=== PATIENT | female | born 1940 | race Caucasian/White ===

== ENCOUNTER 2016-10-17 15:46 | Inpatient (IN) | payer MEDICARE, OTHER ==
[~2016-10-17] VITALS: Ht 162.6 cm; Wt 80.5 kg
[2016-10-17] MEDS: IPRATRPIUM/ALBUTEROL 0.5/2.5MG 3 ML NEBU. NEB SCH ×2 (16:00→20:01)
[2016-10-17 16:40] VITALS: BP 117/79
[2016-10-17] MEDS ORDERED: IV 1/2 NORMAL SALINE 1,000 ML IV SCH (16:45)
[2016-10-17 16:48] VITALS: BP 157/71
[2016-10-17 16:52] LABS: ALBUMIN 3.2 g/dL (3.4-5.0); ALBUMIN/GLOBULIN RATIO 0.8 (1.0-1.7); CALCIUM 8.8 mg/dL (8.5-10.1); CREATININE 1.4 mg/dL (0.6-1.0); GFR 36.8; POTASSIUM 4.1 mmol/L (3.5-5.1); TOTAL BILIRUBIN 0.2 mg/dL (0.2-1.0); TOTAL PROTEIN 7.3 g/dL (6.4-8.2)
[2016-10-17 16:56] LABS: BASO # 0.1 x10^3/uL (0.0-0.2); BASO % 1 % (0-3); EOS # 0.1 x10^3/uL (0.0-0.7); EOS % 1 % (0-3); HEMATOCRIT 34.2 % (36.0-47.0); HEMOGLOBIN 11.2 g/dL (12.0-15.5); LYMPH # 2.6 x10^3/uL (1.0-4.8); LYMPH % 26 % (24-48); MEAN CORPUSCULAR HEMOGLOBIN 29 pg (25-35); MEAN CORPUSCULAR HGB CONC 33 g/dL (31-37); MEAN CORPUSCULAR VOLUME 87 fL (79-100); MONO # 0.8 x10^3/uL (0.0-1.1); MONO % 8 % (0-9); NEUT # 6.7 x10^3uL (1.8-7.7); NEUT % 65 % (31-73); PLATELET COUNT 219 x10^3/uL (140-400); RED BLOOD COUNT 3.92 x10^6/uL (3.50-5.40); RED CELL DISTRIBUTION WIDTH 14.9 % (11.5-14.5); WHITE BLOOD COUNT 10.3 x10^3/uL (4.0-11.0)
[2016-10-17] MEDS ORDERED: HYDR-2762 PO (16:57)
[2016-10-17] MEDS ORDERED: ALBU8.5H8 INH (16:57)
[2016-10-17] MEDS ORDERED: IPRA3AMP NEB (16:57)
[2016-10-17] MEDS ORDERED: HYDR25TA9 PO (16:57)
[2016-10-17] MEDS ORDERED: INSU100V13 SQ (16:57)
[2016-10-17] MEDS ORDERED: DILT180C64 PO (16:57)
[2016-10-17] MEDS ORDERED: FURO40TA4 PO (16:57)
[2016-10-17] MEDS ORDERED: ALPR1TAB6 PO (16:57)
[2016-10-17] MEDS ORDERED: LISI10TA2 PO (16:57)
[2016-10-17] MEDS ORDERED: IPRATRPIUM/ALBUTEROL 0.5/2.5MG 3 ML NEBU. NEB SCH (17:00)
[2016-10-17] MEDS ORDERED: ALBUTEROL SULFATE 2.5 MG/3 ML NEBU. NEB PRN (17:15)
[2016-10-17] MEDS: HYDROcodone/APAP 7.5/325MG 1 TAB TABLET PO PRN (17:33)
[2016-10-17] MEDS ORDERED: fentaNYL PF 100 MCG/2 ML VIAL IV PRN (17:45)
[2016-10-17] MEDS ORDERED: AZITHROMYCIN 500 MG in IV NORMAL SALINE 250ML 250 ML IV SCH (18:00)
[2016-10-17] MEDS ORDERED: ENOXAPARIN 40 MG/0.4 ML DISP.SYRIN. SQ SCH (18:15)
[2016-10-17] MEDS ORDERED: ENOXAPARIN 30 MG/0.3 ML DISP.SYRIN. SQ SCH (18:15)
[2016-10-17 19:18] VITALS: BP 110/69
[2016-10-17 20:35] LABS: BILIRUBIN,URINE NEG (NEG); CLARITY,URINE CLOUDY; COLOR,URINE YELLOW; GLUCOSE,URINE NEG (NEG); NITRITE,URINE NEG (NEG); UROBILINOGEN,URINE 0.2 mg/dL (0.2 mg/dL)
[2016-10-17 20:36] LABS: BACTERIA,URINE FEW /HPF (0-FEW); SQUAMOUS EPITHELIAL CELL,UR MANY /LPF; WBC,URINE 20-40 /HPF (0-4)
[2016-10-17 20:44] LABS: YEAST,URINE PRESENT /HPF
[2016-10-17] MEDS: ENOXAPARIN 40 MG/0.4 ML DISP.SYRIN. SQ SCH (21:44)
[2016-10-17] MEDS: INSULIN DETEMIR 300 UNITS/3 ML INSULN.PEN. SQ SCH (21:45)
[2016-10-17 22:58] VITALS: BP 141/62
[2016-10-18] MEDS: IPRATRPIUM/ALBUTEROL 0.5/2.5MG 3 ML NEBU. NEB SCH ×4 (05:12→21:11)
[2016-10-18 05:50] VITALS: BP 113/60
[2016-10-18 06:35] LABS: BASO % 1 % (0-3); EOS # 0.1 x10^3/uL (0.0-0.7); EOS % 2 % (0-3); HEMATOCRIT 32.2 % (36.0-47.0); HEMOGLOBIN 10.4 g/dL (12.0-15.5); LYMPH # 2.6 x10^3/uL (1.0-4.8); LYMPH % 33 % (24-48); MEAN CORPUSCULAR HEMOGLOBIN 29 pg (25-35); MEAN CORPUSCULAR HGB CONC 32 g/dL (31-37); MEAN CORPUSCULAR VOLUME 88 fL (79-100); MONO # 0.7 x10^3/uL (0.0-1.1); MONO % 10 % (0-9); NEUT # 4.3 x10^3uL (1.8-7.7); NEUT % 55 % (31-73); PLATELET COUNT 180 x10^3/uL (140-400); RED BLOOD COUNT 3.64 x10^6/uL (3.50-5.40); RED CELL DISTRIBUTION WIDTH 14.9 % (11.5-14.5); WHITE BLOOD COUNT 7.8 x10^3/uL (4.0-11.0)
[2016-10-18 06:46] LABS: CALCIUM 8.9 mg/dL (8.5-10.1); CREATININE 1.3 mg/dL (0.6-1.0)
[2016-10-18] MEDS ORDERED: PANT40TA5 PO (08:05)
[2016-10-18] MEDS: hydroCHLOROthiazide 25 MG TABLET PO SCH (08:06)
[2016-10-18] MEDS: ALPRAZolam 0.5 MG TABLET PO SCH (08:06)
[2016-10-18] MEDS: LISINOPRIL 20 MG TABLET PO SCH (08:07)
[2016-10-18] MEDS: FUROSEMIDE 40 MG TABLET PO SCH (08:07)
[2016-10-18] MEDS: HYDROcodone/APAP 7.5/325MG 1 TAB TABLET PO PRN ×2 (08:09→20:54)
[2016-10-18] MEDS: PANTOPRAZOLE 40 MG TABLET. PO SCH (08:09)
[2016-10-18] MEDS: INSULIN DETEMIR 300 UNITS/3 ML INSULN.PEN. SQ SCH ×2 (08:11→20:55)
--- NOTE | 2016-10-18 08:37 | RAD ---
Indication: Pneumonia and shortness of air. Time of exam 0927 hours. Correlation is made with prior chest from 03/08/2013. The heart size is stable. There is a large hiatal hernia present. No infiltrates are detected. No effusion is seen. There is no pneumothorax. Impression: Hiatal hernia. No acute cardiopulmonary process is detected.
[2016-10-18 10:14] VITALS: BP_SYST 81
[2016-10-18 15:20] VITALS: BP 111/67
[2016-10-18] MEDS ORDERED: AZITHROMYCIN 250 MG TABLET. PO SCH (17:00)
[2016-10-18 18:01] VITALS: BP 116/72
[2016-10-18] MEDS: methylPREDNISolone SOD SUCC PF 40 MG/ML VIAL. IV SCH (20:52)
[2016-10-18] MEDS: ENOXAPARIN 40 MG/0.4 ML DISP.SYRIN. SQ SCH (20:54)
[2016-10-18 23:20] VITALS: BP 123/67
[2016-10-19 05:07] VITALS: BP 115/71
--- NOTE | 2016-10-19 05:16 | PN ---
DATE: 10/18/2016 SUBJECTIVE: A 76-year-old female in with acute exacerbation of COPD. X-rays at the office did demonstrate an early pneumonic process. The patient says she is feeling much better. She is breathing a lot easier. OBJECTIVE: VITAL SIGNS: Blood pressure 110/70, respiratory rate 20, pulse 80, afebrile, oxygen saturation has come up gradually. GENERAL: In any case, the patient is alert and oriented. LUNGS: Diminished throughout. Occasional wheeze in the upper lobes. CARDIOVASCULAR: Regular sinus rhythm. ABDOMEN: Soft, nontender. EXTREMITIES: No clubbing, cyanosis or edema. LABORATORY DATA: Hemoglobin 10.4 and 32. The patient's BUN and creatinine of 23 and 1.3, blood sugar approximately 170. IMPRESSION: Therefore, pneumonia of unspecified etiology; acute exacerbation of chronic obstructive pulmonary disease; type 2 diabetes; chronic kidney disease 3; and mild protein malnutrition. PLAN: The patient will be continued tapering down on her Solu-Medrol and make further evaluation on her as indicated. THONY MEDELLIN MD DR: MAGALY/elmo JOB#: [id number] / [id number]
[2016-10-19] MEDS: IPRATRPIUM/ALBUTEROL 0.5/2.5MG 3 ML NEBU. NEB SCH ×2 (05:50→09:38)
[2016-10-19] MEDS: PANTOPRAZOLE 40 MG TABLET. PO SCH (07:34)
[2016-10-19] MEDS: ALPRAZolam 0.5 MG TABLET PO SCH (08:40)
[2016-10-19] MEDS: HYDROcodone/APAP 7.5/325MG 1 TAB TABLET PO PRN (08:41)
[2016-10-19] MEDS: hydroCHLOROthiazide 25 MG TABLET PO SCH (08:41)
[2016-10-19] MEDS: LISINOPRIL 20 MG TABLET PO SCH (08:42)
[2016-10-19] MEDS: FUROSEMIDE 40 MG TABLET PO SCH (08:42)
[2016-10-19] MEDS: methylPREDNISolone SOD SUCC PF 40 MG/ML VIAL. IV SCH (08:43)
[2016-10-19] MEDS: INSULIN DETEMIR 300 UNITS/3 ML INSULN.PEN. SQ SCH (08:52)
[2016-10-19 10:32] VITALS: BP 144/70
[2016-10-19] MEDS ORDERED: DEXTROSE 50% 25 GM / 50ML DISP.SYRIN. IV PRN (12:00)
[2016-10-19] MEDS ORDERED: INSULIN ASPART 300 UNITS/3 ML INSULN.PEN SQ ONE (12:15)
[2016-10-19] MEDS ORDERED: PRED-220 PO (13:33)
[2016-10-19] MEDS ORDERED: IPRA3AMP NEB (13:33)
[2016-10-19] MEDS ORDERED: INSULIN ASPART 300 UNITS/3 ML INSULN.PEN SQ SCH (16:30)
--- NOTE | 2016-10-19 21:42 | DS ---
DATE OF DISCHARGE: 10/19/2016 HOSPITAL COURSE: This patient came in with acute exacerbation of COPD, extremely short of breath, tightness and wheezing throughout. The patient had an x-ray in the office which showed pneumonic process. The patient made good progress during rest of her hospitalization. Hemoglobin did drop down to 10.4 and 32. The patient's blood sugars ____ with the IV steroids that were used for the COPD. Otherwise, the patient made good progress. She did have a UA with culture sensitivity pending, which was not back by the time she was discharged. In any case, the patient made excellent progress during the rest of her hospitalization and she was discharged home. DISCHARGE DIAGNOSES. Includes that of acute exacerbation of chronic obstructive pulmonary disease, pneumonia of unspecified etiology and urinary tract infection, unidentified at this time. DISCHARGE INSTRUCTIONS: She will be discharged home and follow up as an outpatient. See MRAD. Decreased activity. Continue to use her breathing machine and she does see a dental assistant teacher, Dr. Asher for her pulmonary needs. THONY MEDELLIN MD DR: MAGALY/elmo JOB#: [id number] / [id number]
== END 2016-10-19 14:30 | disposition home or self-care (01) | DRG 190 ==
LOC: 1 SOUTH 15:46
PROVIDERS: ADMIT Family Medicine; ATTEND Family Medicine
DX: J44.0 Chronic obstructive pulmonary disease with (acute) lower respiratory infection (principal); J18.9 Pneumonia, unspecified organism; E44.1 Mild protein-calorie malnutrition; N39.0 Urinary tract infection, site not specified; J44.1 Chronic obstructive pulmonary disease with (acute) exacerbation; N18.9 Chronic kidney disease, unspecified; E11.22 Type 2 diabetes mellitus with diabetic chronic kidney disease; Z68.30 Body mass index [BMI] 30.0-30.9, adult; Z88.5 Allergy status to narcotic agent
CPT/HCPCS: 36415; 71020; 80048; 80053; 81001; 82947; 83605; 85027; 87040; 87086; 94640; J0456; J0696; J1650; J1815; J2920; J7030; J7050; J7620

== ENCOUNTER 2016-10-28 15:17 | Inpatient (IN) | payer OTHER ==
[~2016-10-28] VITALS: Ht 162.6 cm; Wt 78.6 kg
[~2016-10-28 15:17] MED LIST: ALBU8.5H8 INH; ALPR1TAB6 PO; DILT180C64 PO; FURO40TA4 PO; HYDR-2762 PO; HYDR25TA9 PO; INSU100V13 SQ; IPRA3AMP NEB; LISI10TA2 PO; PANT40TA5 PO; PRED-220 PO
--- NOTE | 2016-10-28 15:42 | EKG ---
[address] [address] Test Date: 2016-10-28 Test Time: 15:40:09 Pat Name: HENRIETTA ROMERO Department: Room: Gender: F Pulmonary Function Technologist: : 1940 Requested By: YESSENIA LEA Order Number: [id number] Reading MD: Nathaniel Babb Measurements Intervals [place] Rate: 112 P: 65 WA: 128 QRS: 45 QRSD: 86 T: 66 QT: 318 QTc: 436 Interpretive Statements SINUS TACHYCARDIA PVC PAC Electronically Signed On 11-03-2016 13:32:08 CDT by Nathaniel Babb
[2016-10-28] MEDS ORDERED: IPRATRPIUM/ALBUTEROL 0.5/2.5MG 3 ML NEBU. NEB ONE (15:45)
[2016-10-28 16:04] LABS: BASO % 0 % (0-3); EOS # 0.1 x10^3/uL (0.0-0.7); EOS % 0 % (0-3); HEMATOCRIT 38.7 % (36.0-47.0); HEMOGLOBIN 12.7 g/dL (12.0-15.5); LYMPH # 1.1 x10^3/uL (1.0-4.8); LYMPH % 5 % (24-48); MEAN CORPUSCULAR HEMOGLOBIN 29 pg (25-35); MEAN CORPUSCULAR HGB CONC 33 g/dL (31-37); MEAN CORPUSCULAR VOLUME 87 fL (79-100); MONO # 1.2 x10^3/uL (0.0-1.1); MONO % 5 % (0-9); NEUT # 20.8 x10^3uL (1.8-7.7); NEUT % 90 % (31-73); PLATELET COUNT 236 x10^3/uL (140-400); RED BLOOD COUNT 4.47 x10^6/uL (3.50-5.40); RED CELL DISTRIBUTION WIDTH 15.4 % (11.5-14.5); WHITE BLOOD COUNT 23.2 x10^3/uL (4.0-11.0)
[2016-10-28 16:21] LABS: BGAS PH 7.5 (7.35-7.45)
--- NOTE | 2016-10-28 16:22 | RAD ---
Examination: Single frontal view chest History shortness of breath Comparison: 10/18/2016 Findings: The cardiomediastinal silhouette grossly appears unremarkable. Small hiatal hernia is identified. Mild right lung base airspace opacities clinically atelectasis or infiltrate. Impression: 1. Mild right lung base airspace opacities likely atelectasis or infiltrate. 2. Small hiatal hernia.
[2016-10-28 16:28] LABS: ALBUMIN 3.3 g/dL (3.4-5.0); ALBUMIN/GLOBULIN RATIO 0.7 (1.0-1.7); CALCIUM 9.5 mg/dL (8.5-10.1); CREATININE 1.8 mg/dL (0.6-1.0); GFR 27.5; POTASSIUM 3.7 mmol/L (3.5-5.1); TOTAL BILIRUBIN 0.7 mg/dL (0.2-1.0); TOTAL PROTEIN 8.3 g/dL (6.4-8.2)
[2016-10-28] MEDS ORDERED: methylPREDNISolone SOD SUCC PF 125 MG/2 ML VIAL. IV ONE ×2 (16:30→17:00)
--- NOTE | 2016-10-28 16:36 | ED.ADGEN ---
Past History Past Medical History: CHF, COPD, Diabetes, Other Past Surgical History: Appendectomy, Cholecystectomy, Hysterectomy, Other Alcohol Use: None Drug Use: None Adult General Chief Complaint Chief Complaint Shortness of air HPI HPI Patient is a 76-year-old female with history of feet and S heart failure recently admitted this facility for COPD exacerbation and discharged home 9 days ago currently on steroids who presents with increased shortness of breath over the past 48 hours. Patient reports she shortness breath and fatigue with exertion long with chills sweats tactile fever. She does not have chest pain, leg pain or swelling. No abdominal pain, constipation or diarrhea. Patient requires 2 L of oxygen at night for sleep apnea. Review of Systems Review of Systems ROS as per HPI Current Medications Current Medications Current Medications Medications (Trade) Dose Ordered Sig/Rigo Start Time Stop Time Status Last Admin Dose Admin Albuterol/ Ipratropium (Duoneb) 3 ml 1X ONCE 10/28/16 15:45 10/28/16 15:46 DC Allergies Allergies Allergies Coded Allergies Type Severity Reaction Last Updated Verified codeine Allergy Intermediate 10/28/16 Yes Physical Exam Physical Exam Constitutional: Well developed, well nourished, no acute distress, non-toxic appearance. HENT: Normocephalic, atraumatic, bilateral external ears normal, oropharynx moist, no oral exudates, nose normal. Eyes: PERRLA, EOMI, conjunctiva normal, no discharge. Neck: Normal range of motion, no tenderness, supple, no stridor. Cardiovascular:Heart rate regular rhythm, no murmur. Lungs & Thorax: Bilateral breath sounds clear to auscultation. Abdomen: Bowel sounds normal, soft, no tenderness, no masses, no pulsatile masses. Skin: Warm, dry, no erythema, no rash. Back: No tenderness, no CVA tenderness. Extremities: No tenderness. Neurologic: Alert and oriented X 3, normal motor function, normal sensory function, no focal deficits noted. Psychologic: Affect normal, judgement normal, mood normal. Current Patient Data Vital Signs Vital Signs Date Time Temp Pulse Resp B/P (MAP) Pulse Ox O2 Delivery O2 Flow Rate FiO2 10/28/16 16:10 109 37 99/65 (76) 93 Nasal Cannula 2.0 10/28/16 15:31 97.0 Lab Results Laboratory Tests Test 10/28/16 15:47 10/28/16 15:55 White Blood Count 23.2 x10^3/uL (4.0-11.0) H Red Blood Count 4.47 x10^6/uL (3.50-5.40) Hemoglobin 12.7 g/dL (12.0-15.5) Hematocrit 38.7 % (36.0-47.0) Mean Corpuscular Volume 87 fL (79-100) Mean Corpuscular Hemoglobin 29 pg (25-35) Mean Corpuscular Hemoglobin Concent 33 g/dL (31-37) Red Cell Distribution Width 15.4 % (11.5-14.5) H Platelet Count 236 x10^3/uL (140-400) Neutrophils (%) (Auto) 90 % (31-73) H Lymphocytes (%) (Auto) 5 % (24-48) L Monocytes (%) (Auto) 5 % (0-9) Eosinophils (%) (Auto) 0 % (0-3) Basophils (%) (Auto) 0 % (0-3) Neutrophils # (Auto) 20.8 x10^3uL (1.8-7.7) H Lymphocytes # (Auto) 1.1 x10^3/uL (1.0-4.8) Monocytes # (Auto) 1.2 x10^3/uL (0.0-1.1) H Eosinophils # (Auto) 0.1 x10^3/uL (0.0-0.7) Basophils # (Auto) 0.0 x10^3/uL (0.0-0.2) Platelet Estimate Pending Sodium Level 138 mmol/L (136-145) Potassium Level 3.7 mmol/L (3.5-5.1) Chloride Level 96 mmol/L (98-107) L Carbon Dioxide Level 30 mmol/L (21-32) Anion Gap 12 (6-14) Blood Urea Nitrogen 36 mg/dL (7-20) H Creatinine 1.8 mg/dL (0.6-1.0) H Estimated GFR (Cockcroft-Gault) 27.5 BUN/Creatinine Ratio 20 (6-20) Glucose Level 149 mg/dL (70-99) H Calcium Level 9.5 mg/dL (8.5-10.1) Total Bilirubin 0.7 mg/dL (0.2-1.0) Aspartate Amino Transferase (AST) 18 U/L (15-37) Alanine Aminotransferase (ALT) 25 U/L (14-59) Alkaline Phosphatase 143 U/L (46-116) H Creatine Kinase 53 U/L (26-192) Creatine Kinase MB (Mass) 0.5 ng/mL (0.0-3.6) Creatine Kinase MB Relative Index 0.9 % (0-4) Troponin I Quantitative < 0.017 ng/mL (0-0.055) YG-Hmn-V-Type Natriuretic Peptide 392 pg/mL (0-124) H Total Protein 8.3 g/dL (6.4-8.2) H Albumin 3.3 g/dL (3.4-5.0) L Albumin/Globulin Ratio 0.7 (1.0-1.7) L Blood pH 7.50 (7.35-7.45) H Blood Gas PCO2 32 mmHg (35-45) L Blood Gas PO2 56 mmHg (71-100) L Blood Gas HCO3 25 mmol/L (22-26) Arterial Bld O2 Saturation (Calc) 92 % (92-99) FiO2 28 % EKG EKG [EKG: No sinus rhythm, no acute ST-T wave changes.] Radiology/Procedures Radiology/Procedures [Chest x-ray: Pulmonary infiltrates] Course & Med Decision Making Course & Med Decision Making Pertinent Labs and Imaging studies reviewed. (See chart for details) [Short of breath with elevated white blood cell count pulmonary infiltrate. Recent hospital admission. Antibiotics started hospital-acquired pneumonia. IV fluids and antibiotics given. Dr. Aquino to admit] Final Impression Final Impression [1.Pneumonia 2. COPD exacerbation Problems: Dragon Disclaimer Dragon Disclaimer This electronic medical record was generated, in whole or in part, using a voice recognition dictation system. YESSENIA LEA DO October 28, 2016 16:36
[2016-10-28] MEDS ORDERED: IV NORMAL SALINE 500ML 500 ML IV ONE (16:45)
[2016-10-28] MEDS ORDERED: ONDANSETRON PF 4 MG/2 ML VIAL. IV PRN (16:45)
[2016-10-28] MEDS: IPRATRPIUM/ALBUTEROL 0.5/2.5MG 3 ML NEBU. NEB SCH ×2 (17:52→20:44)
[2016-10-28 18:25] VITALS: BP 97/51
--- NOTE | 2016-10-28 18:38 | ACF ---
Admission Criteria Forms COPD Clinical Indications for Admission to Inpatient Care (Place 'X' for any and all applicable criteria): Admission is indicated for ANY ONE of the following (1)(2)(3): [X]I. Acute exacerbation by high-risk comorbidity (e.g., pneumonia, dysrhythmia, heart failure, pleural effusion, pneumothorax) or severe underlying COPD (e.g., steroid dependent) [ ]II. Inpatient admission required rather than observation care (see Chronic Obstructive Pulmonary Disease: Observation Care) because of ANY ONE of the following: [ ]a) New or pre-existing signs or symptoms of COPD (eg, dyspnea or Tachypnea at rest or with minimal activity) that persist despite outpatient and observation care treatment [ ]b) New-onset hypoxemia (room air SaO2 less than 90%, PO2 less than 60 mm Hg (8.0 kPa)) that persists despite outpatient and observation care treatment [ ]c) Worsening of pre-existing hypoxemia (eg, new or increased requirement for supplemental oxygen to maintain oxygenation at baseline level) that persists despite outpatient and observation care treatment, with oxygen treatment needs performable only in acute inpatient setting [ ]d) Hypercarbia (PCO2 greater than 40 mm Hg (5.3 kPa))-induced respiratory acidosis (pH less than 7.35) that persists despite outpatient and observation care treatment [ ]e) Supplemental oxygen or respiratory treatments for over 24 hours that are performable only in acute inpatient setting [ ]f) Chest tube placement with active evacuation (e.g., suction, drainage) (5) [ ]g) Other condition, treatment or monitoring requiring inpatient admission [ ]III. Planned invasive surgical or diagnostic procedures requiring acute- care hospitalization [ ]IV. Acute respiratory failure (e.g., uncompensated hypercarbia, severe hypoxemia) [ ]V. Severe comorbid condition (e.g., severe steroid myopathy, acute vertebral fracture) that has acutely worsened pulmonary function [ ]. Confusion state, lethargy, obtundation, stupor or coma Extended stay beyond goal length of stay may be needed for (31)(32): [ ]a ) Respiratory Failure. [ ]b) Severe or persisting hypoxemia or hypercarbia [ ]c) Severe or persistent dyspnea [ ]d) Comorbidities (e.g. chronic heart failure, atrial fibrillation with rapid response, pneumonia) [ ]e) Malnutrition The original [facility] content created by [facility] has been revised. The portions of the content which have been revised are identified through the use of italic text or in bold, and [facility] has neither reviewed nor approved the modified material. All other unmodified content is copyright [facility]. Please see references footnoted in the original [facility] edition 2016 Admission Criteria Met?: Yes GAYE KAPOOR October 28, 2016 18:38
[2016-10-28] MEDS ORDERED: ALBUTEROL SULFATE 8GM INHALER. INH PRN (18:45)
[2016-10-28 19:33] VITALS: BP 97/60
[2016-10-28] MEDS ORDERED: IV NORMAL SALINE 100ML 100 ML ONE (19:36)
[2016-10-28] MEDS: HYDROcodone/APAP 7.5/325MG 1 TAB TABLET PO PRN (19:42)
[2016-10-28 19:57] LABS: % SEGS 88 % (35-66)
[2016-10-28 19:58] LABS: % LYMPHS 7 % (24-48); % MONOS 5 % (0-10)
[2016-10-28 19:59] LABS: OVALOCYTES OCC; PLT ESTIMATE ADEQUATE (ADEQUATE); POLYCHROMASIA SLIGHT
[2016-10-28] MEDS ORDERED: DEXTROSE 50% 25 GM / 50ML DISP.SYRIN. IV PRN (20:30)
[2016-10-28] MEDS ORDERED: IPRATRPIUM/ALBUTEROL 0.5/2.5MG 3 ML NEBU. NEB SCH ×2 (21:00)
[2016-10-28] MEDS: methylPREDNISolone SOD SUCC PF 40 MG/ML VIAL. IV SCH (21:04)
[2016-10-28] MEDS: INSULIN DETEMIR 300 UNITS/3 ML INSULN.PEN. SQ SCH (21:05)
[2016-10-28] MEDS: INSULIN ASPART 300 UNITS/3 ML INSULN.PEN SQ SCH (21:05)
[2016-10-28 22:51] VITALS: BP 95/61
[2016-10-29] MEDS: IPRATRPIUM/ALBUTEROL 0.5/2.5MG 3 ML NEBU. NEB SCH ×4 (05:20→20:24)
[2016-10-29] MEDS: methylPREDNISolone SOD SUCC PF 40 MG/ML VIAL. IV SCH ×3 (05:27→20:56)
[2016-10-29 05:34] VITALS: BP 126/75
[2016-10-29 07:14] LABS: BASO % 0 % (0-3); EOS % 0 % (0-3); HEMATOCRIT 33.3 % (36.0-47.0); HEMOGLOBIN 10.6 g/dL (12.0-15.5); LYMPH # 0.8 x10^3/uL (1.0-4.8); LYMPH % 6 % (24-48); MEAN CORPUSCULAR HEMOGLOBIN 28 pg (25-35); MEAN CORPUSCULAR HGB CONC 32 g/dL (31-37); MEAN CORPUSCULAR VOLUME 87 fL (79-100); MONO # 0.2 x10^3/uL (0.0-1.1); MONO % 1 % (0-9); NEUT # 13.4 x10^3uL (1.8-7.7); NEUT % 93 % (31-73); PLATELET COUNT 192 x10^3/uL (140-400); RED BLOOD COUNT 3.82 x10^6/uL (3.50-5.40); RED CELL DISTRIBUTION WIDTH 15.2 % (11.5-14.5); WHITE BLOOD COUNT 14.4 x10^3/uL (4.0-11.0)
[2016-10-29 07:24] LABS: ALBUMIN 2.7 g/dL (3.4-5.0); ALBUMIN/GLOBULIN RATIO 0.6 (1.0-1.7); CALCIUM 9.8 mg/dL (8.5-10.1); CREATININE 1.9 mg/dL (0.6-1.0); GFR 25.8; POTASSIUM 4.2 mmol/L (3.5-5.1); TOTAL BILIRUBIN 0.3 mg/dL (0.2-1.0); TOTAL PROTEIN 7.2 g/dL (6.4-8.2)
[2016-10-29] MEDS: LISINOPRIL 10 MG TABLET PO SCH (08:19)
[2016-10-29] MEDS: HYDROcodone/APAP 7.5/325MG 1 TAB TABLET PO PRN (08:21)
[2016-10-29] MEDS: PANTOPRAZOLE 40 MG TABLET. PO SCH (08:21)
[2016-10-29] MEDS: FUROSEMIDE 40 MG TABLET PO SCH (08:21)
[2016-10-29] MEDS: INSULIN DETEMIR 300 UNITS/3 ML INSULN.PEN. SQ SCH ×2 (08:26→19:07)
[2016-10-29] MEDS: INSULIN ASPART 300 UNITS/3 ML INSULN.PEN SQ SCH ×4 (08:27→19:08)
[2016-10-29] MEDS ORDERED: predniSONE 10 MG TABLET PO SCH (09:00)
[2016-10-29 11:23] VITALS: BP 107/65
[2016-10-29] MEDS ORDERED: INSULIN ASPART 300 UNITS/3 ML INSULN.PEN SQ ONE (12:15)
[2016-10-29 16:18] VITALS: BP 101/56
[2016-10-29 19:19] VITALS: BP 124/70
--- NOTE | 2016-10-29 19:31 | HP ---
ADMIT DATE: 10/28/2016 HISTORY OF PRESENT ILLNESS: A 76-year-old female came in through the Emergency Room with increased shortness of breath. The patient has a long history of COPD. Apparently, she continues to smoke. She admits that she has not followed the doctor's advice and recommendations and orders to stop smoking. In any case, she had further exacerbation of chronic obstructive pulmonary disease with increased shortness of breath and the like. Again, she was notified that probably her smoking more than anything else has precipitated exacerbation of her COPD and told her of the dire consequences of this as well. She also was noted to have an elevated lactic acid consistent with sepsis. The patient was admitted for exacerbation of COPD and sepsis. PAST MEDICAL HISTORY: Type 2 diabetes. She has had CHF, followed by ____. She has had pulmonary emboli in 2007, hypertension, COPD, anxiety, GERD, sleep apnea, but does not wear her CPAP at night; high blood pressure, high cholesterol, coronary artery disease. ALLERGIES: CODEINE and AVANDIA which she stopped taking it. MEDICATIONS: Levemir subcutaneous twice daily, ProAir inhaler, Nexium 40 mg, furosemide 40 mg, metoprolol 25, DuoNeb treatments 4 times a day, Cartia 180 daily, hydrochlorothiazide, lisinopril, furosemide 40, hydrocodone, Xanax 1 mg. FAMILY HISTORY: Unremarkable except for diabetes and cancer in the father. Heart problems in the mother as well as emphysema from smoking. PAST SURGICAL HISTORY: Bowel obstruction in 2006, appendectomy, hysterectomy as noted. SOCIAL HISTORY: Unfortunately, the patient continues to smoke about a half-pack of cigarettes a day, has about a 31-[id number] history of smoking and again ____ told to stop smoking. She denies alcohol. She does drink soda pop per day, a couple. REVIEW OF SYSTEMS: The patient denies any headaches, vision change, blurred vision, double vision. Denies chest pain, but does have shortness of breath. She denies any melena, hematochezia, hematemesis. Denies nausea or vomiting, but does have marked dyspnea. PHYSICAL EXAMINATION: GENERAL: This is a pleasant white female in moderate amount of distress. VITAL SIGNS: Blood pressure is that of 107/65, respiratory rate 24, pulse 92, temperature basically hypothermic at 97, at one time her pulse was 110 basically and ____ was decreased to 99/65; 2 liters of nasal cannula. HEENT: Head is atraumatic, normocephalic. Eyes: PERRLA without jaundice. Mouth and throat were normal. NECK: Supple without JVD or thyromegaly. LUNGS: Diminished throughout with poor breath sounds and rhonchi noted throughout. CARDIOVASCULAR: Regular sinus rhythm. ABDOMEN: Soft, nontender. EXTREMITIES: No clubbing, cyanosis or edema. NEUROLOGIC: The patient was alert and oriented x 3. The patient was admitted for further evaluation and treatment thereof. IMPRESSION: Exacerbation of chronic obstructive pulmonary disease, sepsis and the patient on sepsis pathway, make further evaluation on her as indicated per those results. THONY MEDELLIN MD DR: MAGALY/elmo JOB#: [id number] / [id number]
[2016-10-29] MEDS ORDERED: IV NORMAL SALINE 100ML 100 ML ONE (19:35)
[2016-10-29] MEDS ORDERED: methylPREDNISolone SOD SUCC PF 125 MG/2 ML VIAL. IV SCH (22:00)
[2016-10-29 23:00] VITALS: BP 121/61
[2016-10-30 03:17] VITALS: BP 119/72
[2016-10-30] MEDS: methylPREDNISolone SOD SUCC PF 40 MG/ML VIAL. IV SCH ×2 (05:14→21:03)
[2016-10-30] MEDS ORDERED: IPRATRPIUM/ALBUTEROL 0.5/2.5MG 3 ML NEBU. ONE (05:34)
[2016-10-30 05:49] VITALS: BP 131/70
[2016-10-30] MEDS: IPRATRPIUM/ALBUTEROL 0.5/2.5MG 3 ML NEBU. NEB SCH ×3 (08:00→20:47)
[2016-10-30] MEDS: FUROSEMIDE 40 MG TABLET PO SCH (08:05)
[2016-10-30] MEDS: PANTOPRAZOLE 40 MG TABLET. PO SCH (08:05)
[2016-10-30] MEDS: LISINOPRIL 10 MG TABLET PO SCH (08:06)
[2016-10-30] MEDS: INSULIN DETEMIR 300 UNITS/3 ML INSULN.PEN. SQ SCH ×2 (08:08→21:10)
[2016-10-30] MEDS: INSULIN ASPART 300 UNITS/3 ML INSULN.PEN SQ SCH ×4 (08:08→21:10)
[2016-10-30 08:40] LABS: BASO % 0 % (0-3); EOS % 0 % (0-3); HEMATOCRIT 33.4 % (36.0-47.0); HEMOGLOBIN 10.7 g/dL (12.0-15.5); LYMPH # 0.8 x10^3/uL (1.0-4.8); LYMPH % 4 % (24-48); MEAN CORPUSCULAR HEMOGLOBIN 28 pg (25-35); MEAN CORPUSCULAR HGB CONC 32 g/dL (31-37); MEAN CORPUSCULAR VOLUME 87 fL (79-100); MONO # 0.6 x10^3/uL (0.0-1.1); MONO % 4 % (0-9); NEUT % 92 % (31-73); PLATELET COUNT 237 x10^3/uL (140-400); RED BLOOD COUNT 3.85 x10^6/uL (3.50-5.40); RED CELL DISTRIBUTION WIDTH 15.3 % (11.5-14.5); WHITE BLOOD COUNT 18.5 x10^3/uL (4.0-11.0)
[2016-10-30 08:51] LABS: ALBUMIN/GLOBULIN RATIO 0.7 (1.0-1.7); CALCIUM 9.8 mg/dL (8.5-10.1); GFR 24.4; POTASSIUM 4.1 mmol/L (3.5-5.1); TOTAL BILIRUBIN 0.3 mg/dL (0.2-1.0); TOTAL PROTEIN 7.4 g/dL (6.4-8.2)
[2016-10-30 11:45] VITALS: BP 126/63
--- NOTE | 2016-10-30 12:09 | RAD ---
Indication: Cough, pneumonia. Technique: Two-view chest radiograph was obtained. Comparison is from 2 days earlier. Findings: The lungs are clear. There is no pleural effusion. The heart is not enlarged. There is atheromatous disease in the thoracic aorta. There is a small hiatal hernia. There are degenerative changes in the spine. Leads overlie the patient. Impression: No acute thoracic findings.
[2016-10-30] MEDS: guaiFENesin 300 MG/15 ML LIQUID PO PRN (17:43)
[2016-10-30 19:35] VITALS: BP 121/64
[2016-10-30] MEDS: ALPRAZolam 0.5 MG TABLET PO PRN (21:03)
[2016-10-30] MEDS: HYDROcodone/APAP 7.5/325MG 1 TAB TABLET PO PRN (21:03)
[2016-10-31] MEDS: guaiFENesin 300 MG/15 ML LIQUID PO PRN ×2 (01:13→16:41)
--- NOTE | 2016-10-31 03:26 | PN ---
DATE: 10/28/2016 SUBJECTIVE: A 76-year-old female with acute exacerbation of COPD, hypoxic, and sepsis. The patient is doing a little better today. She feels a little stronger, but still receiving IV antibiotic therapy and IV steroids. White count has come down gradually, but then gone back up probably from the steroids. Blood sugars are still elevated, but will be coming down with steroids decreased. Creatinine is slightly increased. She is not getting good hydration, otherwise; blood cultures have been negative. The patient otherwise seems to be making excellent progress and will continue with such. Otherwise, the patient's blood pressure 126/63, respiratory rate 22, pulse 100, and the patient's oxygen saturation on 2 liters at 97%. OBJECTIVE GENERAL: The patient is alert and oriented. LUNGS: Shows expiratory wheezing. CARDIOVASCULAR: Regular sinus rhythm. ABDOMEN: Soft, nontender, and protuberant. EXTREMITIES: No clubbing, cyanosis, nor edema. IMPRESSION: Sepsis, acute exacerbation of chronic obstructive pulmonary disease, chronic kidney disease 3, and type 2 diabetes exacerbation by the use of steroids. PLAN: Continue with present drug regimen. THONY MEDELLIN MD DR: MAGALY/elmo JOB#: [id number] / [id number]
[2016-10-31] MEDS: IPRATRPIUM/ALBUTEROL 0.5/2.5MG 3 ML NEBU. NEB SCH ×4 (05:25→20:55)
[2016-10-31 05:42] VITALS: BP 129/71
[2016-10-31 05:57] LABS: BASO % 0 % (0-3); EOS % 0 % (0-3); HEMATOCRIT 33.1 % (36.0-47.0); HEMOGLOBIN 10.7 g/dL (12.0-15.5); LYMPH # 0.6 x10^3/uL (1.0-4.8); LYMPH % 4 % (24-48); MEAN CORPUSCULAR HEMOGLOBIN 28 pg (25-35); MEAN CORPUSCULAR HGB CONC 32 g/dL (31-37); MEAN CORPUSCULAR VOLUME 87 fL (79-100); MONO # 0.8 x10^3/uL (0.0-1.1); MONO % 5 % (0-9); NEUT # 15.1 x10^3uL (1.8-7.7); NEUT % 91 % (31-73); PLATELET COUNT 238 x10^3/uL (140-400); RED BLOOD COUNT 3.82 x10^6/uL (3.50-5.40); RED CELL DISTRIBUTION WIDTH 15.5 % (11.5-14.5); WHITE BLOOD COUNT 16.5 x10^3/uL (4.0-11.0)
[2016-10-31 06:03] LABS: CALCIUM 9.5 mg/dL (8.5-10.1); CREATININE 2.2 mg/dL (0.6-1.0); GFR 21.8; POTASSIUM 4.4 mmol/L (3.5-5.1)
[2016-10-31] MEDS: methylPREDNISolone SOD SUCC PF 40 MG/ML VIAL. IV SCH ×2 (07:57→20:24)
[2016-10-31] MEDS: LISINOPRIL 10 MG TABLET PO SCH (07:58)
[2016-10-31] MEDS: PANTOPRAZOLE 40 MG TABLET. PO SCH (07:58)
[2016-10-31] MEDS: INSULIN ASPART 300 UNITS/3 ML INSULN.PEN SQ SCH ×4 (07:59→20:37)
[2016-10-31] MEDS: FUROSEMIDE 40 MG TABLET PO SCH (08:00)
[2016-10-31] MEDS: INSULIN DETEMIR 300 UNITS/3 ML INSULN.PEN. SQ SCH ×2 (08:00→20:36)
[2016-10-31 08:02] LABS: % BANDS 1 % (0-9); % LYMPHS 8 % (24-48); % MONOS 4 % (0-10); % SEGS 87 % (35-66); PLATELET CLUMP PRESENT; PLT ESTIMATE ADEQUATE (ADEQUATE)
[2016-10-31] MEDS: HYDROcodone/APAP 7.5/325MG 1 TAB TABLET PO PRN ×2 (08:12→18:41)
[2016-10-31] MEDS: ALPRAZolam 0.5 MG TABLET PO PRN ×2 (08:12→18:41)
[2016-10-31 18:01] VITALS: BP 118/61
[2016-10-31 22:03] VITALS: BP 118/66
[2016-11-01 02:10] VITALS: BP 115/65
[2016-11-01] MEDS: guaiFENesin 300 MG/15 ML LIQUID PO PRN ×2 (03:43→11:47)
[2016-11-01] MEDS: IPRATRPIUM/ALBUTEROL 0.5/2.5MG 3 ML NEBU. NEB SCH ×2 (04:57→10:16)
[2016-11-01 06:03] VITALS: BP 123/75
[2016-11-01 06:07] LABS: BASO % 0 % (0-3); EOS % 0 % (0-3); HEMATOCRIT 33.3 % (36.0-47.0); HEMOGLOBIN 10.9 g/dL (12.0-15.5); LYMPH # 0.6 x10^3/uL (1.0-4.8); LYMPH % 6 % (24-48); MEAN CORPUSCULAR HEMOGLOBIN 28 pg (25-35); MEAN CORPUSCULAR HGB CONC 33 g/dL (31-37); MEAN CORPUSCULAR VOLUME 86 fL (79-100); MONO # 0.5 x10^3/uL (0.0-1.1); MONO % 5 % (0-9); NEUT # 9.9 x10^3uL (1.8-7.7); NEUT % 90 % (31-73); PLATELET COUNT 224 x10^3/uL (140-400); RED BLOOD COUNT 3.87 x10^6/uL (3.50-5.40); RED CELL DISTRIBUTION WIDTH 15.5 % (11.5-14.5); WHITE BLOOD COUNT 11.1 x10^3/uL (4.0-11.0)
[2016-11-01 06:23] LABS: CALCIUM 9.6 mg/dL (8.5-10.1); CREATININE 1.7 mg/dL (0.6-1.0); GFR 29.4; POTASSIUM 4.8 mmol/L (3.5-5.1)
[2016-11-01] MEDS: INSULIN ASPART 300 UNITS/3 ML INSULN.PEN SQ SCH ×2 (08:27→11:48)
[2016-11-01] MEDS: INSULIN DETEMIR 300 UNITS/3 ML INSULN.PEN. SQ SCH (08:28)
[2016-11-01] MEDS: PANTOPRAZOLE 40 MG TABLET. PO SCH (08:28)
[2016-11-01] MEDS: FUROSEMIDE 40 MG TABLET PO SCH (08:28)
[2016-11-01] MEDS: methylPREDNISolone SOD SUCC PF 40 MG/ML VIAL. IV SCH (08:29)
[2016-11-01] MEDS: LISINOPRIL 10 MG TABLET PO SCH (08:30)
[2016-11-01 11:00] VITALS: BP 95/55
--- NOTE | 2016-11-01 11:09 | PN ---
DATE: SUBJECTIVE: A 76-year-old female with acute exacerbation of COPD, acute respiratory failure. The patient of course had been smoking and we worked on this numerous times to help her stop smoking; however, she developed sepsis and acute exacerbation of COPD. She is doing somewhat better. Her lungs are diminished, but clear than they have been. She is still on 3 liters anywhere from 94% to 96%, blood pressure 120/60, respiratory rate 24, pulse 90, afebrile. The patient's white count is down to 16,000, hemoglobin steady at 10.7 and 33. Electrolytes are basically unremarkable but creatinine is up to 2.2 showing some slight dehydration there. We will go ahead and may give her some mild fluids. She is down on a low dose of prednisone as we are tapering her down on that. Her lungs are still diminished throughout. We are trying to get arrange for skilled facility. OBJECTIVE: LUNGS: Otherwise, the patient's lungs are diminished throughout, some rhonchi noted. CARDIOVASCULAR: Regular sinus rhythm. ABDOMEN: Soft, protuberant. EXTREMITIES: No clubbing, cyanosis or edema. NEUROLOGIC: Intact. IMPRESSION: Therefore, acute respiratory distress, sepsis, acute exacerbation of chronic obstructive pulmonary disease, chronic kidney disease, type 2 diabetes. PLAN: Continue to monitor and get ready for possible skilled placement and also smoking cessation. THONY MEDELLIN MD DR: MAGALY/elmo JOB#: [id number] / [id number]
[2016-11-01] MEDS: ALPRAZolam 0.5 MG TABLET PO PRN (11:47)
[2016-11-01] MEDS: HYDROcodone/APAP 7.5/325MG 1 TAB TABLET PO PRN (11:47)
[2016-11-01] MEDS ORDERED: PRED-220 PO (11:55)
[2016-11-01] MEDS ORDERED: NICO1PAT21 TP (12:13)
== END 2016-11-01 12:56 | disposition home health service (06) | DRG 871 ==
LOC: ER 15:17 → 1 SOUTH 16:40 → ICU 10-31 16:29
PROVIDERS: ADMIT Family Medicine; ATTEND Family Medicine
DX: A41.9 Sepsis, unspecified organism (principal); J96.01 Acute respiratory failure with hypoxia; E43 Unspecified severe protein-calorie malnutrition; J44.1 Chronic obstructive pulmonary disease with (acute) exacerbation; I13.0 Hypertensive heart and chronic kidney disease with heart failure and stage 1 through stage 4 chronic kidney disease, or unspecified chronic kidney disease; N17.9 Acute kidney failure, unspecified; N18.4 Chronic kidney disease, stage 4 (severe); F17.210 Nicotine dependence, cigarettes, uncomplicated; K21.9 Gastro-esophageal reflux disease without esophagitis; E11.22 Type 2 diabetes mellitus with diabetic chronic kidney disease; I25.10 Atherosclerotic heart disease of native coronary artery without angina pectoris; I50.9 Heart failure, unspecified; F41.9 Anxiety disorder, unspecified; Z82.5 Family history of asthma and other chronic lower respiratory diseases; Z83.3 Family history of diabetes mellitus; Z86.711 Personal history of pulmonary embolism; Z90.49 Acquired absence of other specified parts of digestive tract; Z90.710 Acquired absence of both cervix and uterus; Z88.5 Allergy status to narcotic agent
CPT/HCPCS: 36415; 71010; 71020; 80048; 80053; 82553; 82803; 82947; 83605; 83880; 84484; 85007; 85027; 87040; 87641; 93005; 94640; 96361; 96374; J0696; J1815; J1956; J2920; J2930; J7040; J7620; 97110; 97530; 99285-25

== ENCOUNTER 2016-12-02 10:40 | Emergency (ER) | payer OTHER ==
[~2016-12-02] VITALS: Ht 315 cm; Wt 78.5 kg
[~2016-12-02 10:40] MED LIST changes: +NICO1PAT21 TP
--- NOTE | 2016-12-02 10:49 | PHYS DOC ---
Past History Past Medical History: CHF, COPD, Diabetes, Other Past Surgical History: Appendectomy, Cholecystectomy, Hysterectomy, Other Alcohol Use: None Drug Use: None Adult General Chief Complaint Chief Complaint: HYPERTENSION HPI HPI Patient is a 76 year old female who presents with elevated blood pressure and headache. The patient states her blood pressure has been running high and her home health nurse was checking her blood pressure this morning. At that time and was found to be in the 190s over 90s. She received lisinopril 20 mg orally and blood pressure remained elevated so she was referred here for further evaluation. She states today she has had generalized throbbing frontal headache , not the worst headache of her life and not sudden in onset, but unusual for her. She denies vision changes, chest pain, shortness of breath, extremity numbness or weakness, lower extremity edema. She has history of high blood pressure, reports medication compliance. Seen by her PCP Dr. Aquino yesterday in the clinic, given prescriptions for URI/bronchitis, states her blood pressure was also elevated at that time & she was instructed to monitor closely. Review of Systems Review of Systems Constitutional: Denies fever or chills Eyes: Denies change in visual acuity HENT: Denies nasal congestion or sore throat Respiratory: Denies cough or shortness of breath Cardiovascular: Denies chest pain or edema GI: Denies abdominal pain, nausea, vomiting : Denies dysuria or hematuria Musculoskeletal: Denies back pain or joint pain Integument: Denies rash or skin lesions Neurologic: Reports headache, denies focal weakness or sensory changes Allergies Allergies Allergies Coded Allergies Type Severity Reaction Last Updated Verified codeine Allergy Intermediate 10/28/16 Yes I S O L A T I O N *CONTACT* Allergy Unknown 10/31/16 Yes Physical Exam Physical Exam Constitutional: Well developed, well nourished, no acute distress, non-toxic appearance. HENT: Normocephalic, atraumatic, bilateral external ears normal, oropharynx moist, nose normal. Eyes: PERRLA, EOMI, conjunctiva normal, no discharge. Neck: supple, no stridor. no meningismus. Cardiovascular: RRR, no murmurs, no edema. Lungs & Thorax: LCTAB, no wheezing, no respiratory distress. Abdomen: soft, nontender, nondistended. Skin: Warm, dry, no erythema, no rash. Back: No tenderness. Extremities: No tenderness, no edema. no calf tenderness or swelling. Neurologic: Alert and oriented X 3, CN2-12 grossly intact, symmetric strength/ sensation to UE & LE, no focal deficits noted. Psychologic: Affect normal, judgement normal, mood normal. EKG EKG interpreted by me: NSR rate 81, no acute ST/T wave changes, normal intervals, no ectopy.[] Radiology/Procedures Radiology/Procedures PROCEDURE: CT HEAD WO CONTRAST CT of the head without contrast, 12/02/2016: History: Hypertension, headache There is mild cerebral atrophy. The ventricles are within normal limits in size. There is no shift of the midline structures. There is no evidence of acute intracranial hemorrhage or mass effect. IMPRESSION: No acute intracranial abnormality is detected. PQRS Compliance Statement: One or more of the following individualized dose reduction techniques were utilized for this examination: 1. Automated exposure control 2. Adjustment of the mA and/or kV according to patient size 3. Use of iterative reconstruction technique DICTATED AND SIGNED BY: RICHAR DESIR MD DATE: 12/02/161128 [] Course & Med Decision Making Course & Med Decision Making Pertinent Labs and Imaging studies reviewed. (See chart for details) The patient presents with hypertension & headache. She declined need for medication for her headache. Normal neuro exam. BP 193/96 upon arrival, improved to 157/[address] shows no intracranial hemorrhage, no abnormality of labs. Recommend continue to take lisinopril as prescribed. Follow up with Dr. Aquino for ongoing blood pressure management. Return to the emergency department for severe headache, severe chest pain or shortness of breath, focal neuro deficit, any otherwise worsening condition. Discharged home in stable condition. [] Dragon Disclaimer Dragon Disclaimer This chart was dictated in whole or in part using Voice Recognition software in a busy, high-work load, and often noisy Emergency Department environment. It may contain unintended and wholly unrecognized errors or omissions. Departure Departure: Impression: Primary Impression: Hypertension Additional Impression: Headache Disposition: HOME, SELF-CARE Condition: IMPROVED Referrals: THONY AQUINO MD (PCP) Patient Instructions: Hypertension, [id number] Additional Instructions: You seen in the emergency department today for high blood pressure. Blood pressure improved without any treatment here so your home medications seems to be working. Tests done in the emergency department did not show any serious abnormality. Please continue to take lisinopril as prescribed. Follow-up with Dr. Aquino for ongoing blood pressure management. Return to the emergency department for severe headache, severe shortness of breath or chest pain, numbness or weakness in arms or legs, any otherwise worsening condition. Problem Qualifiers GILDARDO BAILEY MD Dec 02, 2016 10:49
[2016-12-02 11:10] LABS: BASO # 0.1 x10^3/uL (0.0-0.2); BASO % 1 % (0-3); EOS # 0.1 x10^3/uL (0.0-0.7); EOS % 1 % (0-3); HEMATOCRIT 37.5 % (36.0-47.0); HEMOGLOBIN 11.8 g/dL (12.0-15.5); LYMPH % 18 % (24-48); MEAN CORPUSCULAR HEMOGLOBIN 27 pg (25-35); MEAN CORPUSCULAR HGB CONC 32 g/dL (31-37); MEAN CORPUSCULAR VOLUME 86 fL (79-100); MONO # 0.8 x10^3/uL (0.0-1.1); MONO % 7 % (0-9); NEUT # 8.1 x10^3uL (1.8-7.7); NEUT % 73 % (31-73); PLATELET COUNT 255 x10^3/uL (140-400); RED BLOOD COUNT 4.37 x10^6/uL (3.50-5.40); RED CELL DISTRIBUTION WIDTH 15.6 % (11.5-14.5); WHITE BLOOD COUNT 11.1 x10^3/uL (4.0-11.0)
[2016-12-02 11:25] LABS: ALBUMIN 3.2 g/dL (3.4-5.0); ALBUMIN/GLOBULIN RATIO 0.8 (1.0-1.7); CALCIUM 9.4 mg/dL (8.5-10.1); CREATININE 1.1 mg/dL (0.6-1.0); GFR 48.6; POTASSIUM 3.6 mmol/L (3.5-5.1); TOTAL BILIRUBIN 0.4 mg/dL (0.2-1.0); TOTAL PROTEIN 7.4 g/dL (6.4-8.2)
[2016-12-02 11:33] VITALS: BP 157/77
--- NOTE | 2016-12-02 11:34 | RAD ---
CT of the head without contrast, 12/02/2016: History: Hypertension, headache There is mild cerebral atrophy. The ventricles are within normal limits in size. There is no shift of the midline structures. There is no evidence of acute intracranial hemorrhage or mass effect. IMPRESSION: No acute intracranial abnormality is detected. PQRS Compliance Statement: One or more of the following individualized dose reduction techniques were utilized for this examination: 1. Automated exposure control 2. Adjustment of the mA and/or kV according to patient size 3. Use of iterative reconstruction technique
--- NOTE | 2016-12-02 14:03 | EKG ---
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
== END 2016-12-02 12:09 | disposition home or self-care (01) ==
LOC: ER 10:40
DX: I11.0 Hypertensive heart disease with heart failure (principal); R51 Headache; I50.9 Heart failure, unspecified; E11.9 Type 2 diabetes mellitus without complications; J44.9 Chronic obstructive pulmonary disease, unspecified; Z88.6 Allergy status to analgesic agent; Z91.041 Radiographic dye allergy status
CPT/HCPCS: 36415; 70450; 80053; 84484; 85027; 93005; 99285-25

== ENCOUNTER 2017-01-19 13:10 | Observation (INO) | payer OTHER ==
[~2017-01-19] VITALS: Ht 162.6 cm; Wt 80.7 kg
[2017-01-19] MEDS ORDERED: HYDROmorphone PF 1 MG/ML DISP.SYRIN IV PRN (13:45)
[2017-01-19] MEDS ORDERED: IPRATRPIUM/ALBUTEROL 0.5/2.5MG 3 ML NEBU. NEB ONE ×2 (14:00→15:45)
[2017-01-19] MEDS ORDERED: HYDROcodone/APAP 5/325MG 1 TAB TABLET PO ONE (14:00)
[2017-01-19] MEDS ORDERED: ONDANSETRON ODT 4 MG TAB.RAPDIS ONE (14:02)
--- NOTE | 2017-01-19 15:00 | RAD ---
Indication difficulty breathing. A single view of the chest was obtained. Comparison is made to an examination 10/30/2016. Heart size is unchanged. Pulmonary vasculature is normal. The lungs are clear of acute infiltrates. Significant pleural fluid is not seen. There is no pneumothorax. Hiatus hernia is noted. There has not been a significant change in the appearance of the chest compared to the previous exam. IMPRESSION: No acute finding. No significant change
[2017-01-19] MEDS ORDERED: ONDANSETRON PF 4 MG/2 ML VIAL. IV PRN (15:15)
--- NOTE | 2017-01-19 15:35 | PHYS DOC ---
Past History Past Medical History: CHF, COPD, Diabetes, Hypertension, Pneumonia Past Surgical History: Appendectomy, Cholecystectomy, Hysterectomy Alcohol Use: None Drug Use: None Adult General Chief Complaint Chief Complaint: LOWER EXT PAIN HPI HPI 76-year-old female presenting to the emergency department today with low back pain. Patient's pain is sharp moderate intermittent and without a leading factors. It does radiate down the left buttocks region. She has a history of chronic low back pain. She denies any recent injury or fall. Review of systems was positive for shortness of breath without chest pain. She denies fevers chills cough abdominal pain nausea vomiting. All other review of systems is negative unless otherwise noted in history of present illness. ED course: 76-year-old female presenting to the emergency department today with low back pain acute on chronic likely sciatica. Initially the patient was noted to be hypoxic. She does have a history of COPD so we gave the patient nebulizer medication placed her on oxygen. We tried to titrate the patient's oxygen down however the patient continues to be hypoxic in the mid 70s low 80s. Her back pain is improving however she likely will need to be admitted for COPD exacerbation treatment. She was given another nebulizer IV corticosteroids and then admitted to our hospital for further evaluation workup and care. I considered pulmonary embolism however the patient is a very low risk given the patient denies unilateral leg swelling hemoptysis personal history of blood clotting disorders.The patient does not have chest pain and is not tachycardic. Pulmonology consult placed. Review of Systems Review of Systems SEE ABOVE Current Medications Current Medications Current Medications Medications (Trade) Dose Ordered Sig/Rigo Start Time Stop Time Status Last Admin Dose Admin Acetaminophen/ Hydrocodone Bitart (Lortab 5/325) 2 tab 1X ONCE 01/19/17 14:00 01/19/17 14:01 DC 01/19/17 14:00 2 TAB Albuterol/ Ipratropium (Duoneb) 3 ml 1X ONCE 01/19/17 14:00 01/19/17 14:01 DC 01/19/17 13:56 3 ML Hydromorphone HCl (Dilaudid) 0.5 mg PRN Q30MIN PRN 01/19/17 13:45 Methylprednisolone Sodium Succinate (SOLU-Medrol 125MG VIAL) 125 mg 1X ONCE 01/19/17 15:30 01/19/17 15:31 UNV Morphine Sulfate (Morphine 2mg Syringe) 2 mg PRN Q2HR PRN 01/19/17 15:15 01/20/17 15:14 UNV Ondansetron HCl (Zofran Odt) 4 mg STK-MED ONCE 01/19/17 14:02 01/19/17 14:03 DC Ondansetron HCl (Zofran) 4 mg PRN Q4HRS PRN 01/19/17 15:15 01/20/17 15:14 UNV Allergies Allergies Allergies Coded Allergies Type Severity Reaction Last Updated Verified codeine Allergy Intermediate 10/28/16 Yes I S O L A T I O N *CONTACT* Allergy Unknown 10/31/16 Yes Physical Exam Physical Exam Constitutional: Well developed, well nourished, no acute distress, non-toxic appearance. HENT: Normocephalic, atraumatic, bilateral external ears normal, oropharynx moist, no oral exudates, nose normal. [] Eyes: PERRLA, EOMI, conjunctiva normal, no discharge. [] Neck: Normal range of motion, no tenderness, supple, no stridor. [] Cardiovascular:Heart rate regular rhythm, no murmur [] Lungs & Thorax: Patient has bilateral wheezing. Respiratory rate is mildly increased. She is not in distress. No cyanosis. Abdomen: Bowel sounds normal, soft, no tenderness, no masses, no pulsatile masses. [] Skin: Warm, dry, no erythema, no rash. [] Back: Mild pain to the paraspinal musculature on the left more than the right. Nontender midline. No step-offs fluctuance abrasions. Extremities: No tenderness, no cyanosis, no clubbing, ROM intact, no edema. [] 5 out of 5 strength in lower extremities with 2+ deep tendon reflexes in the legs. Neurologic: Alert and oriented X 3, normal motor function, normal sensory function, no focal deficits noted. [] Psychologic: Affect normal, judgement normal, mood normal. [] Current Patient Data Vital Signs Vital Signs Date Time Temp Pulse Resp B/P (MAP) Pulse Ox O2 Delivery O2 Flow Rate FiO2 01/19/17 14:00 20 93 Room Air 01/19/17 13:33 98.0 109 EKG EKG [] Radiology/Procedures Radiology/Procedures [] Course & Med Decision Making Course & Med Decision Making Pertinent Labs and Imaging studies reviewed. (See chart for details) [] Dragon Disclaimer Dragon Disclaimer This chart was dictated in whole or in part using Voice Recognition software in a busy, high-work load, and often noisy Emergency Department environment. It may contain unintended and wholly unrecognized errors or omissions. Departure Departure: Impression: Primary Impression: COPD exacerbation Disposition: ADMITTED INPATIENT Admitting Physician: Clarence Aquino Condition: IMPROVED Referrals: CLARENCE AQUINO MD (PCP) LOGAN ABBASI MD Jan 19, 2017 15:35
[2017-01-19] MEDS ORDERED: methylPREDNISolone SOD SUCC PF 125 MG/2 ML VIAL. IV ONE (15:45)
[2017-01-19 15:50] LABS: BASO % 1 % (0-3); EOS # 0.1 x10^3/uL (0.0-0.7); EOS % 1 % (0-3); HEMATOCRIT 32.9 % (36.0-47.0); HEMOGLOBIN 10.4 g/dL (12.0-15.5); LYMPH # 1.6 x10^3/uL (1.0-4.8); LYMPH % 16 % (24-48); MEAN CORPUSCULAR HEMOGLOBIN 27 pg (25-35); MEAN CORPUSCULAR HGB CONC 32 g/dL (31-37); MEAN CORPUSCULAR VOLUME 84 fL (79-100); MONO # 0.8 x10^3/uL (0.0-1.1); MONO % 8 % (0-9); NEUT # 7.4 x10^3uL (1.8-7.7); NEUT % 74 % (31-73); PLATELET COUNT 236 x10^3/uL (140-400); RED BLOOD COUNT 3.93 x10^6/uL (3.50-5.40); RED CELL DISTRIBUTION WIDTH 15.7 % (11.5-14.5)
[2017-01-19 16:06] LABS: ALBUMIN 2.8 g/dL (3.4-5.0); CALCIUM 8.7 mg/dL (8.5-10.1); CREATININE 1.3 mg/dL (0.6-1.0); DIRECT BILIRUBIN 0.1 mg/dL (0.0-0.2); POTASSIUM 3.9 mmol/L (3.5-5.1); TOTAL BILIRUBIN 0.4 mg/dL (0.2-1.0); TOTAL PROTEIN 6.6 g/dL (6.4-8.2)
--- NOTE | 2017-01-19 17:15 | EKG ---
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
[2017-01-19 17:35] VITALS: BP 114/73
[2017-01-19] MEDS ORDERED: ASPI-612 PO (18:09)
[2017-01-19] MEDS ORDERED: BISA5TAB4 PO (18:09)
[2017-01-19] MEDS ORDERED: DOCU-109 PO (18:09)
[2017-01-19] MEDS ORDERED: LISI-334 PO (18:09)
[2017-01-19] MEDS: MORPHINE SULFATE 2 MG/ML DISP.SYRIN. IV PRN ×2 (18:23→22:34)
[2017-01-19] MEDS ORDERED: BISACODYL TAB 5 MG TABLET.DR. PO PRN (19:00)
[2017-01-19] MEDS ORDERED: DOCUSATE SODIUM 100 MG CAPSULE PO PRN (19:00)
[2017-01-19] MEDS ORDERED: ALBUTEROL SULFATE 8GM INHALER. INH PRN (19:00)
[2017-01-19] MEDS ORDERED: ALPRAZolam 0.5 MG TABLET PO PRN (19:15)
[2017-01-19] MEDS ORDERED: ALBUTEROL SULFATE 2.5 MG/3 ML NEBU. NEB PRN (19:30)
[2017-01-19] MEDS: IPRATRPIUM/ALBUTEROL 0.5/2.5MG 3 ML NEBU. NEB SCH (20:22)
[2017-01-19] MEDS ORDERED: ENOXAPARIN 40 MG/0.4 ML DISP.SYRIN. SQ SCH (20:30)
[2017-01-19] MEDS: INSULIN DETEMIR 300 UNITS/3 ML INSULN.PEN. SQ SCH (20:58)
[2017-01-19] MEDS: ENOXAPARIN 40 MG/0.4 ML DISP.SYRIN. SQ SCH (21:00)
[2017-01-19 22:23] VITALS: BP 114/61
--- NOTE | 2017-01-20 02:17 | ACF ---
Admission Criteria Forms COPD Clinical Indications for Admission to Inpatient Care (Place 'X' for any and all applicable criteria): Admission is indicated for ANY ONE of the following (1)(2)(3): [x]I. Acute exacerbation by high-risk comorbidity (e.g., pneumonia, dysrhythmia, heart failure, pleural effusion, pneumothorax) or severe underlying COPD (e.g., steroid dependent) [ ]II. Inpatient admission required rather than observation care (see Chronic Obstructive Pulmonary Disease: Observation Care) because of ANY ONE of the following: [ ]a) New or pre-existing signs or symptoms of COPD (eg, dyspnea or Tachypnea at rest or with minimal activity) that persist despite outpatient and observation care treatment [ ]b) New-onset hypoxemia (room air SaO2 less than 90%, PO2 less than 60 mm Hg (8.0 kPa)) that persists despite outpatient and observation care treatment [ ]c) Worsening of pre-existing hypoxemia (eg, new or increased requirement for supplemental oxygen to maintain oxygenation at baseline level) that persists despite outpatient and observation care treatment, with oxygen treatment needs performable only in acute inpatient setting [ ]d) Hypercarbia (PCO2 greater than 40 mm Hg (5.3 kPa))-induced respiratory acidosis (pH less than 7.35) that persists despite outpatient and observation care treatment [ ]e) Supplemental oxygen or respiratory treatments for over 24 hours that are performable only in acute inpatient setting [ ]f) Chest tube placement with active evacuation (e.g., suction, drainage) (5) [ ]g) Other condition, treatment or monitoring requiring inpatient admission [ ]III. Planned invasive surgical or diagnostic procedures requiring acute- care hospitalization [ ]IV. Acute respiratory failure (e.g., uncompensated hypercarbia, severe hypoxemia) [ ]V. Severe comorbid condition (e.g., severe steroid myopathy, acute vertebral fracture) that has acutely worsened pulmonary function [ ]. Confusion state, lethargy, obtundation, stupor or coma Extended stay beyond goal length of stay may be needed for (31)(32): [ ]a ) Respiratory Failure. [ ]b) Severe or persisting hypoxemia or hypercarbia [ ]c) Severe or persistent dyspnea [ ]d) Comorbidities (e.g. chronic heart failure, atrial fibrillation with rapid response, pneumonia) [ ]e) Malnutrition The original [facility] content created by [employer] has been revised. The portions of the content which have been revised are identified through the use of italic text or in bold, and [employer] [facility] has neither reviewed nor approved the modified material. All other unmodified content is copyright [facility]. Please see references footnoted in the original [facility] edition 2016 Admission Criteria Met?: Yes TAM KIRBY Jan 20, 2017 02:17
[2017-01-20] MEDS: IPRATRPIUM/ALBUTEROL 0.5/2.5MG 3 ML NEBU. NEB SCH ×3 (05:30→20:42)
[2017-01-20 05:43] VITALS: BP 145/60
[2017-01-20] MEDS: HYDROcodone/APAP 7.5/325MG 1 TAB TABLET PO PRN ×2 (06:30→17:33)
[2017-01-20 06:41] LABS: BASO % 0 % (0-3); EOS % 0 % (0-3); HEMATOCRIT 31.8 % (36.0-47.0); HEMOGLOBIN 9.9 g/dL (12.0-15.5); LYMPH # 0.6 x10^3/uL (1.0-4.8); LYMPH % 10 % (24-48); MEAN CORPUSCULAR HEMOGLOBIN 27 pg (25-35); MEAN CORPUSCULAR HGB CONC 31 g/dL (31-37); MEAN CORPUSCULAR VOLUME 85 fL (79-100); MONO # 0.1 x10^3/uL (0.0-1.1); MONO % 1 % (0-9); NEUT % 89 % (31-73); PLATELET COUNT 211 x10^3/uL (140-400); RED BLOOD COUNT 3.74 x10^6/uL (3.50-5.40); RED CELL DISTRIBUTION WIDTH 16.1 % (11.5-14.5); WHITE BLOOD COUNT 5.6 x10^3/uL (4.0-11.0)
[2017-01-20 06:42] LABS: CALCIUM 8.7 mg/dL (8.5-10.1); CREATININE 1.4 mg/dL (0.6-1.0); GFR 36.8; POTASSIUM 4.7 mmol/L (3.5-5.1)
[2017-01-20] MEDS ORDERED: DEXTROSE 50% 25 GM / 50ML DISP.SYRIN. IV PRN (08:00)
[2017-01-20] MEDS: ASPIRIN ENTERIC COATED 81 MG TABLET.DR. PO SCH (08:26)
[2017-01-20] MEDS: FUROSEMIDE 40 MG TABLET PO SCH (08:27)
[2017-01-20] MEDS: LISINOPRIL 20 MG TABLET PO SCH (08:27)
[2017-01-20] MEDS: PANTOPRAZOLE 40 MG TABLET. PO SCH (08:27)
[2017-01-20] MEDS: INSULIN ASPART 300 UNITS/3 ML INSULN.PEN SQ SCH ×4 (08:34→20:42)
[2017-01-20] MEDS: INSULIN DETEMIR 300 UNITS/3 ML INSULN.PEN. SQ SCH ×2 (08:34→20:40)
[2017-01-20 08:45] LABS: CLARITY,URINE HAZY; COLOR,URINE YELLOW
[2017-01-20 08:46] LABS: BACTERIA,URINE FEW /HPF (0-FEW); BILIRUBIN,URINE NEG (NEG); GLUCOSE,URINE >=1000 mg/dL (NEG); NITRITE,URINE NEG (NEG); RBC,URINE 0 /HPF (0-2); SQUAMOUS EPITHELIAL CELL,UR MOD /LPF; UROBILINOGEN,URINE 0.2 mg/dL (0.2 mg/dL); WBC,URINE 0 /HPF (0-4)
[2017-01-20] MEDS ORDERED: BISACODYL TAB 5 MG TABLET.DR. PO PRN (09:45)
[2017-01-20] MEDS: DOCUSATE SODIUM 100 MG CAPSULE PO SCH ×2 (10:00→20:46)
[2017-01-20] MEDS: MORPHINE SULFATE 2 MG/ML DISP.SYRIN. IV PRN (10:23)
[2017-01-20] MEDS: LIDOCAINE (700MG/PATCH) PATCH. TD SCH (10:23)
[2017-01-20 11:42] VITALS: BP 166/73
[2017-01-20] MEDS: methylPREDNISolone SOD SUCC PF 40 MG/ML VIAL. IV SCH ×2 (13:16→20:38)
--- NOTE | 2017-01-20 14:51 | RAD ---
Indication chronic pain. AP and lateral views of the lumbar spine were obtained. A coned view targeted to the lumbosacral junction was also obtained. No prior plain film imaging of the lumbar spine is available. The vertebral height is well maintained. There is slight multilevel disc space narrowing. Osteophytes are seen at multiple levels. Facet degenerative changes are noted most pronounced at L4-5 and L5-S1. An acute finding is not seen. Vascular calcification is noted. Note is made of occasional densities in the abdomen opposite the L2-3 disc in both right and left abdomen. If ureteral calculi or clinically suspect additional imaging could be performed. IMPRESSION: Lumbar spondylitic changes.
[2017-01-20 15:52] VITALS: BP 151/70
[2017-01-20 19:48] VITALS: BP 134/71
[2017-01-20] MEDS ORDERED: ENOXAPARIN 40 MG/0.4 ML DISP.SYRIN. SQ SCH (20:30)
[2017-01-20] MEDS: ENOXAPARIN 40 MG/0.4 ML DISP.SYRIN. SQ SCH (20:39)
[2017-01-21] MEDS: IPRATRPIUM/ALBUTEROL 0.5/2.5MG 3 ML NEBU. NEB SCH (04:50)
[2017-01-21 05:19] VITALS: BP 143/79
[2017-01-21] MEDS: HYDROcodone/APAP 7.5/325MG 1 TAB TABLET PO PRN (07:47)
[2017-01-21] MEDS: DOCUSATE SODIUM 100 MG CAPSULE PO SCH (08:19)
[2017-01-21] MEDS: ASPIRIN ENTERIC COATED 81 MG TABLET.DR. PO SCH (08:19)
[2017-01-21] MEDS: FUROSEMIDE 40 MG TABLET PO SCH (08:20)
[2017-01-21] MEDS: methylPREDNISolone SOD SUCC PF 40 MG/ML VIAL. IV SCH (08:20)
[2017-01-21] MEDS: LISINOPRIL 20 MG TABLET PO SCH (08:20)
[2017-01-21] MEDS: PANTOPRAZOLE 40 MG TABLET. PO SCH (08:21)
[2017-01-21] MEDS: INSULIN DETEMIR 300 UNITS/3 ML INSULN.PEN. SQ SCH (08:22)
[2017-01-21] MEDS: LIDOCAINE (700MG/PATCH) PATCH. TD SCH (08:22)
[2017-01-21 10:50] VITALS: BP 148/53
[2017-01-21] MEDS ORDERED: PRED20TA PO (11:04)
[2017-01-21] MEDS ORDERED: HYDR-2762 PO (11:04)
--- NOTE | 2017-01-25 12:06 | HP ---
ADMIT DATE: 01/19/2017 HISTORY OF PRESENT ILLNESS: A 76-year-old female who came in through the Emergency Room with a sharp intermediate pain in her back radiating down to her lower back area. The patient was having extreme pain, possible sciatica. She was also noted to be hypoxic, however, and that was more the reason for her admission as the patient had an exacerbation of COPD with her oxygen saturation of 70% to 80%. She denied chest pain. She denied abdominal pain, nausea, vomiting, melena, hematochezia, or hematemesis. ALLERGIES: The patient has allergies to codeine. PAST MEDICAL HISTORY: The patient's medical history includes that of CHF, coronary artery disease, hypercholesterolemia, hypertension, COPD, pneumonia, sleep apnea, appendectomy, cholecystectomy, GERD, hysterectomy, diabetes, anxiety. FAMILY HISTORY: Mother and father had cardiovascular disease, history of asthma, sleep apnea, hypertension, GI, and diabetes. MEDICATIONS: The patient's medication include that of albuterol, Xanax 1 mg, Diltiazem 180, docusate sodium, furosemide 40 mg, hydrocodone p.r.n., insulin, Levemir 25 units, DuoNeb t.i.d., lisinopril 20, Protonix 40, prednisone 20. The patient otherwise will be monitored carefully on that issue. REVIEW OF SYSTEMS: The patient notes . PHYSICAL EXAMINATION: VITAL SIGNS: Blood pressure of 120/70, respiratory rate 22, pulse 110, afebrile, 92% on 2 liters. HEENT: The patient's head was atraumatic, normocephalic. Eyes: PERRLA without jaundice. The mouth and throat were normal. NECK: Supple. LUNGS: Showed diminished breath sounds with poor inspiratory effort with some expiratory wheezes. CARDIOVASCULAR: Regular sinus rhythm. S1, S2, without murmur, rub, thrill, or extra heart sounds. ABDOMEN: The patient's abdomen is soft, protuberant, nontender. EXTREMITIES: No clubbing, cyanosis, or edema. NEUROLOGIC: The patient was alert and oriented x 3. The patient was admitted to the hospital for further evaluation and treatment. IMPRESSION: Acute exacerbation of chronic obstructive pulmonary disease, acute respiratory failure, hypoxia, sciatica. Await further evaluation on her as indicated. Give her IV steroids, rule out PE and make further evaluation on her as indicated per those results. THONY MEDELLIN MD DR: MAGALY/elmo JOB#: [id number] / [id number]
== END 2017-01-21 11:39 | disposition home or self-care (01) ==
LOC: ER 13:10 → INTOOBSV 15:35 → 1 SOUTH 15:35
PROVIDERS: ADMIT Family Medicine; ATTEND Family Medicine
DX: J44.1 Chronic obstructive pulmonary disease with (acute) exacerbation (principal); J96.01 Acute respiratory failure with hypoxia; I11.0 Hypertensive heart disease with heart failure; I50.9 Heart failure, unspecified; E11.9 Type 2 diabetes mellitus without complications; I25.10 Atherosclerotic heart disease of native coronary artery without angina pectoris; K21.9 Gastro-esophageal reflux disease without esophagitis; F41.9 Anxiety disorder, unspecified; G89.29 Other chronic pain; G47.30 Sleep apnea, unspecified; E78.00 Pure hypercholesterolemia, unspecified; M54.40 Lumbago with sciatica, unspecified side; Z90.49 Acquired absence of other specified parts of digestive tract; Z87.01 Personal history of pneumonia (recurrent); Z90.710 Acquired absence of both cervix and uterus; Z88.5 Allergy status to narcotic agent; Z82.49 Family history of ischemic heart disease and other diseases of the circulatory system; Z82.5 Family history of asthma and other chronic lower respiratory diseases; Z83.3 Family history of diabetes mellitus
CPT/HCPCS: 36415; 71010; 72100; 80048; 80076; 81001; 82947; 83605; 83690; 83880; 84484; 85027; 87641; 93005; 94640; 94760; 96372; 96374; 96375; 96376; 97110; 97162; 97166; 99285; G0378; J1650; J1815; J2270; J2920; J2930; J7620; G0379

== ENCOUNTER 2017-02-01 15:49 | Emergency (ER) | payer OTHER ==
[~2017-02-01] VITALS: Ht 162.6 cm; Wt 68.0 kg
[~2017-02-01 15:49] MED LIST changes: +ASPI-612 PO; +BISA5TAB4 PO; +DOCU-109 PO; +LISI-334 PO; +PRED20TA PO
[2017-02-01 15:50] VITALS: BP 153/66
--- NOTE | 2017-02-01 16:29 | PHYS DOC ---
Past History Past Medical History: CHF, COPD, Diabetes, Hypertension, Pneumonia Past Surgical History: Appendectomy, Cholecystectomy, Hysterectomy Alcohol Use: None Drug Use: None Adult General Chief Complaint Chief Complaint: BACK PAIN - NO INJURY HPI HPI 46-year-old female with a history of chronic low back pain and sciatica now presents to the emergency department because she ran out of her narcotic medication days early and the pharmacy will not refill her prescription for 2 more days. She is requesting pain medicine because her pain is difficult to manage. She normally takes [place] 7.5's. Patient failed to manage the prescription use on a daily basis so they did not last for the entire month. She has no weakness in her legs or incontinence of bowel or bladder. Patient has normal gait however her low back is just very uncomfortable. Requesting some pain control. No injury and no new symptoms Review of Systems Review of Systems Constitutional: Denies fever or chills [] Eyes: Denies change in visual acuity, redness, or eye pain [] HENT: Denies nasal congestion or sore throat [] Respiratory: Denies cough or shortness of breath [] Cardiovascular: No additional information not addressed in HPI [] GI: Denies abdominal pain, nausea, vomiting, bloody stools or diarrhea [] : Denies dysuria or hematuria [] Musculoskeletal: Denies back pain or joint pain [] Integument: Denies rash or skin lesions [] Neurologic: Denies headache, focal weakness or sensory changes [] Endocrine: Denies polyuria or polydipsia [] Allergies Allergies Allergies Coded Allergies Type Severity Reaction Last Updated Verified codeine Allergy Intermediate 10/28/16 Yes I S O L A T I O N *CONTACT* Allergy Unknown 10/31/16 Yes Physical Exam Physical Exam Well-appearing patient in no acute distress at rest. Exam is benign except patient has some right buttock or sacral soft tissue tenderness and positive straight leg raise of the right lower extremity. No saddle anesthesia neurovascularly intact bilateral lower extremities. No spinal or bony tenderness. Constitutional: Well developed, well nourished, no acute distress, non-toxic appearance. [] HENT: Normocephalic, atraumatic, bilateral external ears normal, oropharynx moist, no oral exudates, nose normal. [] Eyes: PERRLA, EOMI, conjunctiva normal, no discharge. [] Neck: Normal range of motion, no tenderness, supple, no stridor. [] Cardiovascular:Heart rate regular rhythm, no murmur [] Lungs & Thorax: Bilateral breath sounds clear to auscultation [] Abdomen: Bowel sounds normal, soft, no tenderness, no masses, no pulsatile masses. [] Skin: Warm, dry, no erythema, no rash. [] Back: No tenderness, no CVA tenderness. [] Extremities: No tenderness, no cyanosis, no clubbing, ROM intact, no edema. [] Neurologic: Alert and oriented X 3, normal motor function, normal sensory function, no focal deficits noted. [] Psychologic: Affect normal, judgement normal, mood normal. [] Current Patient Data Vital Signs Vital Signs Date Time Temp Pulse Resp B/P (MAP) Pulse Ox O2 Delivery O2 Flow Rate FiO2 02/01/17 15:50 98.6 85 20 95 Nasal Cannula 2.0 EKG EKG [] Radiology/Procedures Radiology/Procedures [] Course & Med Decision Making Course & Med Decision Making Pertinent Labs and Imaging studies reviewed. (See chart for details) Signs and symptoms consistent with medication noncompliance with overuse of narcotics which resulted in premature consumption of her monthly narcotic supply. Patient has no signs of a neurologic emergency. She agrees with IM Toradol and Decadron doses as well as a single by mouth [place] 7.5 dose. Offered patient prescription for 4 [place] to get her through until Monday however she states that she would not be able to fill this prescription anyway and attempting to do so would be a violation of her existing pain management agreement with her primary care doctor. Patient is improved after treatment. She is aware to use NSAIDs and continue her outpatient pain control regimen with refill of narcotics as scheduled. Patient was happy with this plan and agrees with outpatient follow-up. no further workup or treatment at this time. Strict return precautions given [] Dragon Disclaimer Dragon Disclaimer This chart was dictated in whole or in part using Voice Recognition software in a busy, high-work load, and often noisy Emergency Department environment. It may contain unintended and wholly unrecognized errors or omissions. Departure Departure: Impression: Primary Impression: Back pain Additional Impression: Sciatica Disposition: HOME, SELF-CARE Condition: IMPROVED Referrals: THONY MEDELLIN MD (PCP) Patient Instructions: Sciatica Additional Instructions: You have sciatica. This is pain in her buttock and leg as a result of inflammation of your sciatic nerve. Take ibuprofen 800 mg every 6 hours and continue your steroid therapy as prescribed. Avoid strenuous activity and follow -up with your doctor in 2 days as scheduled for reevaluation and to refill your narcotic prescription. In the future be mindful not to use up your [place] prescription before your refill time. Consider setting aside the amount of narcotic medication that you are scheduled to use each week, and make sure that it lasts for the entire week so that you don't run out before the end of the month. Problem Qualifiers JACQUI WHALEN MD Feb 01, 2017 16:29
[2017-02-01] MEDS ORDERED: DEXAMETHASONE SOD PHOS 10 MG/ML VIAL IM ONE (17:40)
[2017-02-01] MEDS ORDERED: KETOROLAC 60 MG/2 ML VIAL. IM ONE (17:40)
[2017-02-01] MEDS ORDERED: HYDROcodone/APAP 7.5/325MG 1 TAB TABLET PO ONE (17:50)
== END 2017-02-01 18:00 | disposition home or self-care (01) ==
LOC: ER 15:49
DX: M54.41 Lumbago with sciatica, right side (principal); G89.29 Other chronic pain; I11.0 Hypertensive heart disease with heart failure; I50.9 Heart failure, unspecified; E11.9 Type 2 diabetes mellitus without complications; J44.9 Chronic obstructive pulmonary disease, unspecified; Z88.5 Allergy status to narcotic agent; Z91.041 Radiographic dye allergy status
CPT/HCPCS: 96372; 99284; J1100; J1885

== ENCOUNTER 2017-02-04 22:44 | Emergency (ER) | payer OTHER ==
[~2017-02-04] VITALS: Ht 162.6 cm; Wt 78.6 kg
[2017-02-04] MEDS ORDERED: MORPHINE SULFATE 4 MG/ML DISP.SYRIN. ONE (23:10)
[2017-02-04] MEDS ORDERED: MORPHINE SULFATE 4 MG/ML DISP.SYRIN. IV ONE (23:11)
[2017-02-04] MEDS ORDERED: ADENOSINE 6 MG/2 ML VIAL IV ONE ×2 (23:13→23:30)
[2017-02-04] MEDS ORDERED: ASPIRIN 81 MG TAB.CHEW PO ONE (23:15)
[2017-02-04] MEDS ORDERED: NITROGLYCERIN SUBLINGUAL 0.4 MG BOTTLE OF 25. SL ONE (23:15)
[2017-02-04] MEDS ORDERED: IV DEXTROSE 5% 100 ML IV ONE (23:20)
[2017-02-04] MEDS ORDERED: dilTIAZem 25 MG/5 ML VIAL IVP ONE (23:30)
[2017-02-04 23:37] LABS: BASO # 0.1 x10^3/uL (0.0-0.2); BASO % 1 % (0-3); EOS # 0.2 x10^3/uL (0.0-0.7); EOS % 1 % (0-3); HEMATOCRIT 37.4 % (36.0-47.0); HEMOGLOBIN 11.8 g/dL (12.0-15.5); LYMPH # 3.8 x10^3/uL (1.0-4.8); LYMPH % 21 % (24-48); MEAN CORPUSCULAR HEMOGLOBIN 26 pg (25-35); MEAN CORPUSCULAR HGB CONC 31 g/dL (31-37); MEAN CORPUSCULAR VOLUME 83 fL (79-100); MONO # 1.6 x10^3/uL (0.0-1.1); MONO % 9 % (0-9); NEUT # 12.5 x10^3uL (1.8-7.7); NEUT % 69 % (31-73); PLATELET COUNT 309 x10^3/uL (140-400); RED BLOOD COUNT 4.51 x10^6/uL (3.50-5.40); RED CELL DISTRIBUTION WIDTH 16.7 % (11.5-14.5); WHITE BLOOD COUNT 18.1 x10^3/uL (4.0-11.0)
[2017-02-04 23:47] LABS: ALBUMIN 3.2 g/dL (3.4-5.0); ALBUMIN/GLOBULIN RATIO 0.8 (1.0-1.7); CALCIUM 9.1 mg/dL (8.5-10.1); CREATININE 1.1 mg/dL (0.6-1.0); GFR 48.6; MAGNESIUM 1.9 mg/dL (1.8-2.4); POTASSIUM 3.5 mmol/L (3.5-5.1); TOTAL BILIRUBIN 0.5 mg/dL (0.2-1.0)
[2017-02-05 00:09] LABS: % BANDS 1 % (0-9); % LYMPHS 25 % (24-48); % MONOS 10 % (0-10); % SEGS 61 % (35-66)
[2017-02-05 00:10] LABS: % ATYL 3 % (0-0); ANISOCYTOSIS SLIGHT; HYPOCHROMIA SLIGHT; MICROCYTOSIS SLIGHT; PLT ESTIMATE ADEQUATE (ADEQUATE)
[2017-02-05 01:28] LABS: AMORPHOUS SEDIMENT,UR PRESENT /HPF; BACTERIA,URINE FEW /HPF (0-FEW); BILIRUBIN,URINE NEG (NEG); CLARITY,URINE CLEAR; COLOR,URINE STRAW; GLUCOSE,URINE NEG (NEG); NITRITE,URINE NEG (NEG); RBC,URINE RARE /HPF (0-2); SQUAMOUS EPITHELIAL CELL,UR FEW /LPF; UROBILINOGEN,URINE 0.2 mg/dL (0.2 mg/dL); WBC,URINE 0 /HPF (0-4)
[2017-02-05] MEDS ORDERED: CONTRAST GIVEN MC PRN (01:45)
[2017-02-05] MEDS ORDERED: IOHEXOL 300 MG/ML 75 ML VIAL. IV ONE (01:45)
[2017-02-05] MEDS ORDERED: MORPHINE SULFATE 4 MG/ML DISP.SYRIN. ONE (02:08)
[2017-02-05] MEDS ORDERED: MORPHINE SULFATE 4 MG/ML DISP.SYRIN. IV ONE (02:10)
[2017-02-05] MEDS ORDERED: IV NORMAL SALINE 50ML 50 ML ONE (02:11)
[2017-02-05] MEDS ORDERED: cefTRIAXone SODIUM 1 GM VIAL IV ONE (02:11)
[2017-02-05] MEDS ORDERED: FUROSEMIDE 40 MG/4 ML VIAL IVP ONE (02:15)
--- NOTE | 2017-02-05 02:28 | RAD ---
PQRS Compliance Statement: One or more of the following individualized dose reduction techniques were utilized for this examination: 1. Automated exposure control 2. Adjustment of the mA and/or kV according to patient size 3. Use of iterative reconstruction technique CT CHEST WITH CONTRAST, PULMONARY ANGIOGRAM History: Chest pain, short of air, elevated d-dimer. Comparison: None. Technique: Helical CT of the chest was performed after the administration of 75 cc Omnipaque 300 intravenous contrast according to PE protocol. Axial and coronal reconstructions were obtained. 3-D MIP images were constructed to better evaluate the pulmonary arteries. Findings: Pulmonary arteries are adequately opacified. There is no evidence of pulmonary embolism. No thoracic aortic dissection. Thyroid is enlarged and heterogeneous, subcentimeter bilateral nodules are seen. There is a partially calcified nodule in the lateral right breast measuring 1.5 cm. Subcentimeter mediastinal lymph nodes. Three-vessel coronary artery disease. [id number] sized hiatal hernia. Cardiac size normal, no pericardial effusion. There is no pleural effusion. Mild upper lobe centrilobular emphysema. There is anterior left upper lobe bulla measuring up to 2.7 cm. Calcified granulomas right middle lobe and superior segment of left lower lobe. Mild bilateral lower lobe groundglass opacities. There is bilateral basilar lower lobe peribronchial thickening. Cholecystectomy. Calcified granulomas in the spleen. Probable cyst in the lower pole the right kidney, incompletely imaged. Tiny nonobstructing left renal calculus. There are small bilateral adrenal nodules that by attenuation are compatible with adenomas. Partial fusion of the T12/L1 disc space. There is grade 1 anterolisthesis of C7 on T1. IMPRESSION: 1. There is no CT evidence of pulmonary embolus. 2. Bilateral lower lobe bronchitis. 3. Mild upper lobe centrilobular emphysema. 4. Thyroid is enlarged and multinodular. Consider outpatient thyroid ultrasound. 5. Small bilateral adrenal adenomas. 6. Partially calcified nodule in the lateral right breast. Recommend outpatient evaluation with mammogram if not recently performed. Electronically signed by: Zeb Loving MD (02/05/2017 2:25 AM) [facility]
[2017-02-05 02:35] VITALS: BP 152/75
--- NOTE | 2017-02-05 02:57 | RAD ---
PQRS Compliance Statement: One or more of the following individualized dose reduction techniques were utilized for this examination: 1. Automated exposure control 2. Adjustment of the mA and/or kV according to patient size 3. Use of iterative reconstruction technique CT LUMBAR SPINE WO CONTRAST Clinical Indication: Severe lower back pain, radiating into legs and causing numbness. Comparison: None. TECHNIQUE: Helical CT imaging of the lumbar spine is performed without IV contrast. Findings: No acute compression fracture is identified in the lumbar spine. There is partial fusion of the T12/L1 disc space. Vacuum disc phenomenon of L1/L2. Other disc spaces are maintained. There is mild grade 1 anterolisthesis of L5 on S1. There is mild grade 1 retrolisthesis of L4 on L5. Alignment is otherwise maintained. The vertebral heights are maintained. There is acute nondisplaced fracture of the left sacral ala. Fracture may be due to trauma or insufficiency. Lower lumbar facet hypertrophy. Small bilateral adrenal adenomas. Severe atherosclerotic calcification of the abdominal aorta. Mild ectasia. Small right renal cyst. L3/L4: There is posterior disc bulge and ligament implant redundancy. Central canal stenosis is mild to moderate. Neural foraminal narrowing is probably mild on the right. L4/L5: Broad-based posterior disc osteophyte complex and facet hypertrophy and ligament a plate and redundancy. Central canal stenosis is mild/moderate. IMPRESSION: 1. Acute nondisplaced fracture of the left sacrum. 2. No acute compression fracture in the lumbar spine. Electronically signed by: Zeb Loving MD (02/05/2017 2:54 AM) [facility]
[2017-02-05] MEDS ORDERED: ONDANSETRON PF 4 MG/2 ML VIAL. IV ONE ×2 (03:00→05:20)
[2017-02-05] MEDS ORDERED: methylPREDNISolone SOD SUCC PF 125 MG/2 ML VIAL. IV ONE (03:15)
--- NOTE | 2017-02-05 03:22 | PHYS DOC ---
General Chief Complaint: BACK PAIN - NO INJURY Stated Complaint: BACK PAIN Time Seen by MD: 23:09 Source: patient, old records Exam Limitations: no limitations Problems: History of Present Illness Initial Comments Pt is 76/F to ED with family c/o low back/buttock pain. Pt states for the past weeks to a month she has had worsening left low back/ buttock pain. She denies any trauma, states "I must have done it climbing up and down stairs." She denies any new leg weakness, has had b/l posterior leg pain radiation. She's been taking norco 7.5mg at home without any relief, denies incontinence or saddle anesthesia but has had some hardened stools. On ED arrival pt diaphoretic in severe distress complaining of pain in low back/ buttock as well as chest tightness/palpitations. Denies new SOB/fever/chills/ myalgias. VS on arrival: 97.7, 171, 166/112, 93% RA. She follows with Dr Medellin PCP, states "I've only seen a heart doctor once long time ago." Timing/Duration: constant, other Severity: severe Modifying Factors: worse with movement Associated Symptoms: chest pain, cough, diaphoresis, malaise, weakness, other Allergies: Coded Allergies: codeine (Verified Allergy, Intermediate, 10/28/16) I S O L A T I O N *CONTACT* (Verified Allergy, Unknown, 10/31/16) +MRSA nares 927-13 Past Medical History Medical History: other (CHF, COPD, DM, PE 2007, HTN, COPD, GERD, NAHOMY (doesn't use CPAP but uses 2L O2 NC prn at home), HLP, CAD) Surgical History: appendectomy, cholecystectomy, other (hysterectomy, bowel obstruction 2006) Social History Smoker: cigarettes (60 pk/yr, continues to smoke) Alcohol: none Drugs: none Review of Systems Constitutional: denies chills, diaphoresis, denies fever, malaise Respiratory: see HPI, cough Cardiovascular: see HPI Gastrointestinal: see HPI, denies abdominal pain, denies vomiting Genitourinary: denies dysuria, denies frequency, denies hematuria Musculoskeletal: see HPI Psychiatric/Neurological: denies headache, denies numbness, denies paresthesia , denies seizure, denies weakness Hematologic/Lymphatic: see HPI Physical Exam General Appearance: severe distress Ear, Nose, Throat: hearing grossly normal, normal ENT inspection (dry membranes ), normal pharynx Neck: non-tender, supple Respiratory: other (diffuse wheezes b/l with rales/decreased BS at bases, chest nontender, no respiratory distress) Cardiovascular: normal peripheral pulses, tachycardia, other (2+ pitting LE edema) Gastrointestinal: non tender, soft Back: no CVA tenderness, no vertebral tenderness (exquisite left buttock TTP) Extremities: no calf tenderness, pedal edema Neurologic/Psychiatric: 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 Interpreted by me. Cardizem bolus 20mg, drip initiated EKG (2334): atrial fibrillation with RVR rate 106 bpm, PVC, nonspecific ST changes no STEMI. Interpreted by me. titration to 12mg/h EKG (45): NSR 80 bpm, PACs, LVH, nonspecific T contour abnormalities no STEMI. Interpreted by me. PCXR: small left effusion, cephalization with atelectasis vs infiltrates b/l lower lobes. Interpreted by me. PATIENT: HENRIETTA ROMERO ACCOUNT: [id number] : 1940 LOCATION: ER AGE: 76 SEX: F EXAM STATUS: REG ER ORD. PHYSICIAN: DAVINA OLEA DO REASON: cp, elev d-dimer, h/o PE PROCEDURE: CT LUMBAR SPINE WO CONTRAST PQRS Compliance Statement: One or more of the following individualized dose reduction techniques were utilized for this examination: 1. Automated exposure control 2. Adjustment of the mA and/or kV according to patient size 3. Use of iterative reconstruction technique CT LUMBAR SPINE WO CONTRAST Clinical Indication: Severe lower back pain, radiating into legs and causing numbness. Comparison: None. TECHNIQUE: Helical CT imaging of the lumbar spine is performed without IV contrast. Findings: No acute compression fracture is identified in the lumbar spine. There is partial fusion of the T12/L1 disc space. Vacuum disc phenomenon of L1/L2. Other disc spaces are maintained. There is mild grade 1 anterolisthesis of L5 on S1. There is mild grade 1 retrolisthesis of L4 on L5. Alignment is otherwise maintained. The vertebral heights are maintained. There is acute nondisplaced fracture of the left sacral ala. Fracture may be due to trauma or insufficiency. Lower lumbar facet hypertrophy. Small bilateral adrenal adenomas. Severe atherosclerotic calcification of the abdominal aorta. Mild ectasia. Small right renal cyst. L3/L4: There is posterior disc bulge and ligament implant redundancy. Central canal stenosis is mild to moderate. Neural foraminal narrowing is probably mild on the right. L4/L5: Broad-based posterior disc osteophyte complex and facet hypertrophy and ligament a plate and redundancy. Central canal stenosis is mild/moderate. IMPRESSION: 1. Acute nondisplaced fracture of the left sacrum. 2. No acute compression fracture in the lumbar spine. Electronically signed by: Zeb Loving MD (02/05/2017 2:54 AM) [facility] DICTATED AND SIGNED BY: ZEB LOVING MD DATE: 02/05/178 CC: THONY MEDELLIN MD; DAVINA OLEA DO ~ PATIENT: HENRIETTA ROMERO ACCOUNT: [id number] : 1940 LOCATION: ER AGE: 76 SEX: F EXAM STATUS: REG ER ORD. PHYSICIAN: DAVINA OLEA DO REASON: cp, elev d-dimer, h/o PE PROCEDURE: CT ANGIOGRAPHY CHEST PQRS Compliance Statement: One or more of the following individualized dose reduction techniques were utilized for this examination: 1. Automated exposure control 2. Adjustment of the mA and/or kV according to patient size 3. Use of iterative reconstruction technique CT CHEST WITH CONTRAST, PULMONARY ANGIOGRAM History: Chest pain, short of air, elevated d-dimer. Comparison: None. Technique: Helical CT of the chest was performed after the administration of 75 cc Omnipaque 300 intravenous contrast according to PE protocol. Axial and coronal reconstructions were obtained. 3-D MIP images were constructed to better evaluate the pulmonary arteries. Findings: Pulmonary arteries are adequately opacified. There is no evidence of pulmonary embolism. No thoracic aortic dissection. Thyroid is enlarged and heterogeneous, subcentimeter bilateral nodules are seen. There is a partially calcified nodule in the lateral right breast measuring 1.5 cm. Subcentimeter mediastinal lymph nodes. Three-vessel coronary artery disease. [id number] sized hiatal hernia. Cardiac size normal, no pericardial effusion. There is no pleural effusion. Mild upper lobe centrilobular emphysema. There is anterior left upper lobe bulla measuring up to 2.7 cm. Calcified granulomas right middle lobe and superior segment of left lower lobe. Mild bilateral lower lobe groundglass opacities. There is bilateral basilar lower lobe peribronchial thickening. Cholecystectomy. Calcified granulomas in the spleen. Probable cyst in the lower pole the right kidney, incompletely imaged. Tiny nonobstructing left renal calculus. There are small bilateral adrenal nodules that by attenuation are compatible with adenomas. Partial fusion of the T12/L1 disc space. There is grade 1 anterolisthesis of C7 on T1. IMPRESSION: 1. There is no CT evidence of pulmonary embolus. 2. Bilateral lower lobe bronchitis. 3. Mild upper lobe centrilobular emphysema. 4. Thyroid is enlarged and multinodular. Consider outpatient thyroid ultrasound. 5. Small bilateral adrenal adenomas. 6. Partially calcified nodule in the lateral right breast. Recommend outpatient evaluation with mammogram if not recently performed. 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 Agreeable with current tx course, will see as consult [facility] 0400: Dr Solomon accepts CCU pt for further eval/tx. ED COURSE: 76/F with extensive PMH to ED c/o severe nontraumatic left buttock pain. Found to be afib with RVR on arrival, rate/BP controlled with 20mg cardizem bolus currently on drip at 10mg/h. D-dimer elevated, CTA chest no PE and CT lumbar spine w/o reveals pathologic/nontraumatic nondisplaced left sacral ala fracture. BNP 2558 lasix 20mg IV given. Analgesia achieved with morphine/ fentanyl IV. Will need to be transferred to [facility] due to lack or orthopedics at [facility], pt discussed with Leonardo Montoya/Neha who agree with [facility] transfer and participation in pt's care. IMPRESSIONS: Atrial Fibrillation with RVR Apparent pathologic nondisplaced left sacral ala fracture CHF bilateral lower lobe bronchitis with leukocytosis Thyromegaly, multinodular Calcified right breast nodule Tobaccoism Departure Time of Disposition: 04:18 Disposition: 02 XFER [facility]-TRM HOSP Diagnosis: afib w/RVR, pathologic sacral fracture, CHF, COPD, Condition: IMPROVED Additional Instructions: EMS transfer to [facility] for CCU admission Dr Solmoon is accepting Dr Montoya to be consulted. Critical Care Note Total Time (mins): 90 Comments Critical care time spent directly supervising tachyarrhythmia cardioversion, pain control, reviewing results/arranging transfer DAVINA OLEA DO Feb 05, 2017 03:22
[2017-02-05] MEDS ORDERED: fentaNYL PF 100 MCG/2 ML VIAL ONE ×2 (03:44→04:42)
[2017-02-05] MEDS ORDERED: fentaNYL PF 100 MCG/2 ML VIAL IV ONE ×2 (03:45→04:45)
--- NOTE | 2017-02-05 08:53 | RAD ---
AP chest radiograph February 04, 2017. Clinical indication: Tachycardia and back pain. Comparison: Chest radiograph January 19, 2017. Findings: Heart size is upper limits of normal without pulmonary venous hypertension. No pleural effusion, pneumothorax or focal consolidation. There is a stable small hiatal hernia. Impression: 1. Heart size upper limits of normal without micaela pulmonary edema. 2. Small hiatal hernia.
== END 2017-02-05 05:00 | disposition short-term general hospital (02) ==
LOC: ER 22:44
DX: I48.91 Unspecified atrial fibrillation (principal); I11.0 Hypertensive heart disease with heart failure; I50.9 Heart failure, unspecified; S32.10XA Unspecified fracture of sacrum, initial encounter for closed fracture; N63 Unspecified lump in breast; J40 Bronchitis, not specified as acute or chronic; D72.829 Elevated white blood cell count, unspecified; E01.0 Iodine-deficiency related diffuse (endemic) goiter; J44.9 Chronic obstructive pulmonary disease, unspecified; E11.9 Type 2 diabetes mellitus without complications; K21.9 Gastro-esophageal reflux disease without esophagitis; I25.10 Atherosclerotic heart disease of native coronary artery without angina pectoris; E78.5 Hyperlipidemia, unspecified; G47.33 Obstructive sleep apnea (adult) (pediatric); F17.210 Nicotine dependence, cigarettes, uncomplicated; Z86.711 Personal history of pulmonary embolism; Z88.5 Allergy status to narcotic agent; Z91.041 Radiographic dye allergy status; X58.XXXA Exposure to other specified factors, initial encounter; Y93.89 Activity, other specified; Y99.8 Other external cause status; Y92.89 Other specified places as the place of occurrence of the external cause; I10 Essential (primary) hypertension
CPT/HCPCS: 36415; 71010; 71275; 72131; 80053; 81001; 82550; 82947; 83605; 83690; 83735; 83880; 84484; 85007; 85025; 85379; 85610; 85730; 87040; 96365; 96366; 96367; 96375; 96376; 99291; 99292; J0696; J1940; J2270; J2405; J2930; J3010; J3490; Q9967

== ENCOUNTER → 2017-04-27 | Outpatient (CLI) | payer OTHER | END | disposition home or self-care (01) | LOC: SURG 10:56 | PROVIDERS: ATTEND Anesthesiology Pain Medicine | DX: S32.10XA Unspecified fracture of sacrum, initial encounter for closed fracture (principal); M51.37 Other intervertebral disc degeneration, lumbosacral region; I10 Essential (primary) hypertension; J44.9 Chronic obstructive pulmonary disease, unspecified; E11.9 Type 2 diabetes mellitus without complications; X58.XXXA Exposure to other specified factors, initial encounter; Y93.89 Activity, other specified; Y92.89 Other specified places as the place of occurrence of the external cause; Y99.8 Other external cause status; Z87.891 Personal history of nicotine dependence | CPT/HCPCS: 99204 ==

== ENCOUNTER → 2017-10-26 | Outpatient (CLI) | payer OTHER | END | disposition home or self-care (01) | LOC: SURG 12:24 | PROVIDERS: ATTEND Anesthesiology Pain Medicine | DX: I11.0 Hypertensive heart disease with heart failure (principal); I50.9 Heart failure, unspecified; J44.9 Chronic obstructive pulmonary disease, unspecified; E11.9 Type 2 diabetes mellitus without complications; M47.896 Other spondylosis, lumbar region | CPT/HCPCS: 99213 ==

== ENCOUNTER → 2017-12-01 | Outpatient (CLI) | payer OTHER ==
[~2017-12-01] MED LIST changes: -IPRA3AMP NEB; +IPRA3AMP29 NEB
== END | disposition home or self-care (01) ==
LOC: SURG 10:05
PROVIDERS: ATTEND Anesthesiology Pain Medicine
DX: M54.5 Low back pain (principal); I13.0 Hypertensive heart and chronic kidney disease with heart failure and stage 1 through stage 4 chronic kidney disease, or unspecified chronic kidney disease; E11.22 Type 2 diabetes mellitus with diabetic chronic kidney disease; I50.9 Heart failure, unspecified; N18.4 Chronic kidney disease, stage 4 (severe); E78.5 Hyperlipidemia, unspecified; E78.00 Pure hypercholesterolemia, unspecified
CPT/HCPCS: 99213

== ENCOUNTER → 2018-02-15 | Outpatient (CLI) | payer OTHER | END | disposition home or self-care (01) | LOC: SURG 10:13 | PROVIDERS: ATTEND Anesthesiology Pain Medicine | DX: M47.816 Spondylosis without myelopathy or radiculopathy, lumbar region (principal); G89.4 Chronic pain syndrome; F11.90 Opioid use, unspecified, uncomplicated; M25.532 Pain in left wrist; I13.0 Hypertensive heart and chronic kidney disease with heart failure and stage 1 through stage 4 chronic kidney disease, or unspecified chronic kidney disease; E11.22 Type 2 diabetes mellitus with diabetic chronic kidney disease; I50.9 Heart failure, unspecified; N18.4 Chronic kidney disease, stage 4 (severe); E78.00 Pure hypercholesterolemia, unspecified; J44.9 Chronic obstructive pulmonary disease, unspecified; I25.10 Atherosclerotic heart disease of native coronary artery without angina pectoris; K21.9 Gastro-esophageal reflux disease without esophagitis; Z86.711 Personal history of pulmonary embolism; Z87.01 Personal history of pneumonia (recurrent); Z87.891 Personal history of nicotine dependence; Z90.49 Acquired absence of other specified parts of digestive tract; Z90.710 Acquired absence of both cervix and uterus; Z83.3 Family history of diabetes mellitus; Z82.5 Family history of asthma and other chronic lower respiratory diseases | CPT/HCPCS: 99214 ==

== ENCOUNTER → 2018-05-31 | Outpatient (CLI) | payer OTHER ==
[~2018-05-31] MED LIST changes: +ALBU2.5V8 INH; -ALBU8.5H8 INH; +HYDR-2145 PO; -HYDR-2762 PO; +HYDR-2765 PO; -HYDR25TA9 PO
== END | disposition home or self-care (01) ==
LOC: SURG 10:45
PROVIDERS: ATTEND Anesthesiology Pain Medicine
DX: M47.816 Spondylosis without myelopathy or radiculopathy, lumbar region (principal); G89.4 Chronic pain syndrome; M19.90 Unspecified osteoarthritis, unspecified site; F11.90 Opioid use, unspecified, uncomplicated; J44.9 Chronic obstructive pulmonary disease, unspecified; I10 Essential (primary) hypertension; E11.9 Type 2 diabetes mellitus without complications
CPT/HCPCS: 99214

== ENCOUNTER → 2018-09-07 | Outpatient (CLI) | payer OTHER | END | disposition home or self-care (01) | LOC: SURG 11:58 | PROVIDERS: ATTEND Anesthesiology Pain Medicine | DX: S32.10XA Unspecified fracture of sacrum, initial encounter for closed fracture (principal); M19.90 Unspecified osteoarthritis, unspecified site; F11.90 Opioid use, unspecified, uncomplicated; G89.4 Chronic pain syndrome; J44.9 Chronic obstructive pulmonary disease, unspecified; I10 Essential (primary) hypertension; E11.9 Type 2 diabetes mellitus without complications; Z79.899 Other long term (current) drug therapy; Z87.891 Personal history of nicotine dependence; X58.XXXA Exposure to other specified factors, initial encounter; Y93.89 Activity, other specified; Y92.89 Other specified places as the place of occurrence of the external cause; Y99.8 Other external cause status | CPT/HCPCS: 99214 ==

== ENCOUNTER → 2018-11-09 | Outpatient (CLI) | payer OTHER | END | disposition home or self-care (01) | LOC: SURG 09:35 | PROVIDERS: ATTEND Anesthesiology Pain Medicine | DX: S32.10XA Unspecified fracture of sacrum, initial encounter for closed fracture (principal); F11.90 Opioid use, unspecified, uncomplicated; M19.90 Unspecified osteoarthritis, unspecified site; G89.4 Chronic pain syndrome; J44.9 Chronic obstructive pulmonary disease, unspecified; I10 Essential (primary) hypertension; E11.9 Type 2 diabetes mellitus without complications; Z79.899 Other long term (current) drug therapy; Z87.891 Personal history of nicotine dependence; X58.XXXA Exposure to other specified factors, initial encounter; Y93.89 Activity, other specified; Y92.89 Other specified places as the place of occurrence of the external cause; Y99.8 Other external cause status | CPT/HCPCS: 99214 ==

== ENCOUNTER → 2019-02-01 | Outpatient (CLI) | payer OTHER ==
[~2019-02-01] MED LIST changes: +DABI150C PO
[2019-02-01 10:40] VITALS: BP 169/73
== END | disposition home or self-care (01) ==
LOC: SURG 10:08
PROVIDERS: ATTEND Anesthesiology Pain Medicine
DX: S32.10XA Unspecified fracture of sacrum, initial encounter for closed fracture (principal); J44.9 Chronic obstructive pulmonary disease, unspecified; I10 Essential (primary) hypertension; E11.9 Type 2 diabetes mellitus without complications; G89.4 Chronic pain syndrome; Z79.891 Long term (current) use of opiate analgesic; Z79.51 Long term (current) use of inhaled steroids; Z79.899 Other long term (current) drug therapy; Z87.891 Personal history of nicotine dependence; X58.XXXA Exposure to other specified factors, initial encounter; Y93.89 Activity, other specified; Y92.89 Other specified places as the place of occurrence of the external cause; Y99.8 Other external cause status
CPT/HCPCS: 99214

== ENCOUNTER → 2019-05-15 | Outpatient (CLI) | payer OTHER ==
[~2019-05-15] MED LIST changes: +INSU100V31 SQ
[2019-05-15 10:42] VITALS: BP 156/95
== END | disposition home or self-care (01) ==
LOC: SURG 10:12
PROVIDERS: ATTEND Anesthesiology Pain Medicine
DX: S32.10XA Unspecified fracture of sacrum, initial encounter for closed fracture (principal); M54.5 Low back pain; G89.4 Chronic pain syndrome; M54.9 Dorsalgia, unspecified; X58.XXXA Exposure to other specified factors, initial encounter; Y93.89 Activity, other specified; Y92.89 Other specified places as the place of occurrence of the external cause; Y99.8 Other external cause status; Z79.891 Long term (current) use of opiate analgesic
CPT/HCPCS: 99214